=== PATIENT | male | born 1940 | race African-American/Black ===

== ENCOUNTER 2021-10-22 08:29 | Outpatient (CLI) | payer MEDICARE, OTHER, SELFPAY ==
[2021-10-22 13:54] LABS: Chloride* 97 mmol/L (96-114); Potassium* 3.8 mmol/L (3.6-5.1); Sodium* 132 mmol/L (135-149)
[2021-10-22 13:56] LABS: Bilirubin Total* 0.8 mg/dL (0.1-1.5); Carbon Dioxide* 30 mmol/L (20-32); Cholesterol* 155 mg/dL (90-199); Creatinine* 0.7 mg/dL (0.5-1.5)
[2021-10-22 13:57] LABS: Alanine Aminotransferase* 23 U/L (4-50); Alkaline Phosphatase* 92 U/L (40-150); Aspartate Amino Transferase* 31 U/L (12-35); Blood Urea Nitrogen* 18 mg/dL (7-30); Calcium* 9.2 mg/dL (8.4-10.6); Glucose* 115 mg/dL (60-115); Triglycerides* 77 mg/dL (40-149)
[2021-10-22 13:58] LABS: HDL Cholesterol* 51 mg/dL (>=40); LDL Cholesterol Calculated 89 mg/dL (<100)
[2021-10-22 14:48] LABS: Vitamin B12* > 1000 pg/mL (243-894)
== END 2021-10-22 08:30 | disposition home or self-care (01) ==
PROVIDERS: PCP Family Medicine; Visit Provider Family Medicine
DX: E13.9 Other specified diabetes mellitus without complications (principal); E78.5 Hyperlipidemia, unspecified; I10 Essential (primary) hypertension; E11.9 Type 2 diabetes mellitus without complications; G62.9 Polyneuropathy, unspecified; K21.9 Gastro-esophageal reflux disease without esophagitis; N40.0 Benign prostatic hyperplasia without lower urinary tract symptoms; Z13.21 Encounter for screening for nutritional disorder; R60.9 Edema, unspecified
CPT/HCPCS: 80053; 80061; 82607

== ENCOUNTER 2022-06-02 06:24 | Outpatient (CLI) | payer MEDICARE, OTHER, SELFPAY | END 2022-06-02 06:25 | disposition home or self-care (01) | LOC: AMB 06-11 11:32 | PROVIDERS: PCP Family Medicine; Visit Provider Family Medicine | DX: R42 Dizziness and giddiness (principal) | CPT/HCPCS: A0425; A0427 ==

== ENCOUNTER 2022-06-02 07:02 | Emergency (ER) | payer MEDICARE, OTHER, SELFPAY ==
[2022-06-02] VITALS (12 sets, daily range): BP systolic 129–145; BP diastolic 84–99; PULSE 87–101; RESP 18; TEMP 36.9; O2SAT 93–99; BMI 32.7
--- NOTE | 2022-06-02 07:20 | CRLHL7_ITS ---
For Patients: As a result of the Century Cures Act, medical imaging exams and procedure reports are released immediately into your electronic medical record. You may view this report before your referring provider. If you have questions, please contact your health care provider. INDICATION: Dizziness. TECHNIQUE: Head CT without contrast. COMPARISON: October 14, 2018. FINDINGS: CSF spaces: Within normal limits for age. Brain parenchyma and extra-axial spaces: There are nonspecific low attenuation white matter changes consistent with chronic microvascular disease. No sign of mass, hemorrhage, or midline shift. Skull base and calvarium: The visualized paranasal sinuses and mastoid air cells demonstrate no acute or significant findings. The visualized orbits are grossly unremarkable. No skull fractures. IMPRESSION: No acute or specific finding to explain dizziness. No changes from the prior exam. Please note that all CT scans at this facility use dose modulation, iterative reconstruction, and/or weight-based dosing when appropriate to reduce radiation dose to as low as reasonably achievable. Dictated by Wm Cuevas MD @ 06/02/2022 8:22:56 AM (Electronically Signed)
--- NOTE | 2022-06-02 07:20 | CRLHL7_ITS ---
For Patients: As a result of the Century Cures Act, medical imaging exams and procedure reports are released immediately into your electronic medical record. You may view this report before your referring provider. If you have questions, please contact your health care provider. INDICATION: Dizziness. TECHNIQUE: Chest 2 views. COMPARISON: 01/27/2017. FINDINGS: Cardiovascular and mediastinum: Heart size and vasculature are normal in caliber and appearance. Lungs and pleural spaces: Lungs are clear. No sign of infiltrate or mass. No sign of pleural effusion. No pneumothorax. Bones and soft tissues: No significant findings. IMPRESSION: No acute findings and no significant changes from the prior exam. Dictated by Wm Cuevas MD @ 06/02/2022 8:20:35 AM (Electronically Signed)
--- NOTE | 2022-06-02 07:23 | ED.GENADULT ---
HPI - General Adult General Chief complaint: Dizziness/Vertigo Stated complaint: Dizziness Time Seen by Provider: 06/02/22 07:05 Source: patient and EMS Mode of arrival: EMS History of Present Illness HPI narrative: 81-year-old male presents to the emergency department with dizziness via EMS. Patient reports that he awoke around 530 this morning and checked his blood sugar and reports that it was ?high?. Specifically was around 180 and it is typically around 120. Patient states that his dizziness felt like he was lightheaded and might fall off the chair but does not endorse symptoms of vertigo such as the room spinning or the floor moving. Admittedly, when I pursued this questioning through multiple different redirects, I got a variance of answers. He is a bit hard of hearing and there is a slight language and understanding barrier. He denies any chest pain, no palpitations. There was no head injury, no falls or trauma. He does not take any anticoagulants. He reports that there have been no recent adjustments in his medications but on specific questioning it does sound as though he is not taking all the medications that are listed in his record. He specifically does not take his antihypertensive per his report and I do not believe he is taking his bladder pill as he does not recall it when I asked specifically. Admittedly, I do not think he is a perfect historian regarding this. He denies any alcohol use, no other potential intoxication. No prior history of similar symptoms. No prior history of stroke, heart attack. No GI changes, no nausea or vomiting. No recent illness exposures. No fever. No neck pain or headache, no vision changes. No rash, dysuria or other systemic symptoms. He denies any other focal neurological changes. He did not try any interventions at home prior to calling EMS. Of note, he is on several medications which could contribute to morning dizziness including gabapentin, nortriptyline, clonazepam which he reports that he takes every night. I do not see clonazepam listed in his medication list, but there is lorazepam listed. Past medical history notable for type 2 diabetes, hypertension, peripheral neuropathy, anxiety disorder. Surgical history notable for prior knee surgeries, low bilateral lens surgery of his eyes. Socially no alcohol, no tobacco or smoking. No pertinent travel. Medications reviewed, incomplete per EMR records. Denies allergies. No family history of stroke per patient. Related Data Previous Rx's Medication Instructions Recorded aspirin 81 mg capsule 81 mg PO QDAY #100 caps 05/05/22 atorvastatin 20 mg tablet 20 mg PO QDAY #90 tabs 05/05/22 cholecalciferol (vitamin D3) 50 50 mcg PO QDAY #90 caps 05/05/22 mcg (2,000 unit) capsule clonidine HCl 0.2 mg tablet 0.2 mg PO BID #180 tabs 05/05/22 furosemide 40 mg tablet 40 mg PO .Daily as needed PRN 05/05/22 edema #90 tabs gabapentin 300 mg capsule 600 mg PO BID #360 caps 05/05/22 glipizide 5 mg tablet 5 mg PO QDAY PRN Elevated glucose 05/05/22 #90 tabs glipizide 5 mg-metformin 500 mg 2 tab PO QDAY #180 tabs 05/05/22 tablet hydrochlorothiazide 50 mg tablet 50 mg PO DAILY #90 tabs 05/05/22 lorazepam 0.5 mg tablet 0.5 mg PO BID PRN anxiety #60 tabs 05/05/22 meloxicam 7.5 mg tablet 7.5 mg PO DAILY #90 tabs 05/05/22 multivitamin (Daily Multi-Vitamin 1 tab PO QDAY #100 tabs 05/05/22 tablet) nortriptyline 25 mg capsule 25 mg PO .Bedtime #90 caps 05/05/22 olmesartan 40 mg tablet 40 mg PO DAILY #90 tabs 05/05/22 omega-3 fatty acids 1,000 mg 1,000 mg PO QDAY #90 caps 05/05/22 capsule omeprazole 20 mg capsule,delayed 20 mg PO DAILY #90 caps 05/05/22 release polyethylene glycol 3350 17 17 g PO DAILY #510 grams 05/05/22 gram/dose oral powder tamsulosin 0.4 mg capsule 0.4 mg PO BID #180 caps 05/05/22 Allergies Allergy/AdvReac Type Severity Reaction Status Date / Time losartan Allergy Mild vomiting Verified 06/02/22 07:07 and headaches PFSH PFSH Surgical History Status post arthroscopy of left knee (11/13/08) Status post cataract extraction (09/17/10) Status post repair of ventral hernia Status post shoulder joint replacement Social History Narrative: Hx tobacco use Smoking Status: Former smoker How often do you have a drink containing alcohol: never How often do you have six or more drinks on one occasion: Never AUDIT-C Alcohol total score: 0 Non-prescribed substance use: denies use Exam Const: Vital Signs, click to edit/add: Vital Signs - 24 hr 06/02/22 07:05 Temperature 98.5 F Pulse Rate [Right Pulse Oximeter] 91 Respiratory Rate 18 Blood Pressure [Le ft Upper Arm] 142/84 H Pulse Oximetry 99 Oxygen Delivery Me thod Room Air Documenting provider has reviewed patient's vital signs: yes Common normals: no apparent distress and alert General appearance: cooperative Orientation/consciousness: Yes awake Other: GCS 15 HENMT: Common normals: normocephalic, head/scalp atraumatic and TM's normal bilaterally Head and scalp: normocephalic and atraumatic Face and sinus: normal facial exam Tympanic membrane: TM's normal bilaterally Mouth: oral and palatal mucosa normal Throat: posterior oropharynx normal Eye: Common normals: PERRL and EOMs intact bilaterally Pupil: PERRL Neck & C-Spine: Common normals: full ROM, no lymphadenopathy and no meningeal signs Resp: Common normals: normal respiratory effort, no use of accessory muscles and clear to auscultation bilaterally Effort & inspection: able to speak in complete sentences Auscultation: clear to auscultation bilaterally Cardio: Common normals: regular rate, regular rhythm, S1 normal heart sound, S2 normal heart sound, no murmurs and peripheral pulses 2+ throughout Rate: regular rate Rhythm: regular rhythm Heart sounds: S1 normal and S2 normal Peripheral pulses: pulses 2+ throughout GI: Common normals: Normal to inspection, nondistended, normoactive bowel sounds present Other: Surgical scarring consistent with ventral hernia repair. No masses, no hepatosplenomegaly. Nontender. Back & Pelvis: Thoracic spine/upper back: normal to inspection Extremity: Common normals: normal to inspection, normal capillary refill, no joint enlargement and no pedal edema Other: Mild venous stasis changes in the lower legs only. No ulceration Neuro: Sensorium/orientation: awake and alert Meningeal signs: no meningeal signs Cranial nerves: CN normal except as noted Coordination/balance: yehnds-zl-wuwi test normal Motor exam: strength 5/5 throughout, no pronator drift, no tremor noted and no movement abnormalities noted Coordination: goalad-as-gwpw test normal Psych: Attitude: calm and engaged Activity/motor behavior: appropriate eye contact Insight: insight good Judgement: judgment good Other: Moderate historian. Skin: Common normals: no rashes or lesions noted General skin exam: no rashes or lesions noted Course Vital Signs Vital signs: Initial Vital Signs Temperature 98.5 F 06/02/22 07:05 Temperature Source Temporal Artery Scan 06/02/22 07:05 Pulse Rate 91 06/02/22 07:05 Respiratory Rate 18 06/02/22 07:05 Blood Pressure 142/84 H 06/02/22 07:05 Blood Pressure Mean 103 06/02/22 07:05 Blood Pressure Position Sitting 06/02/22 07:05 Pulse Oximetry 99 06/02/22 07:05 Oxygen Delivery Method 06/02/22 07:05 Vital Signs Temperature 98.5 F 06/02/22 07:05 Pulse Rate 91 06/02/22 07:05 Respiratory Rate 18 06/02/22 07:05 Blood Pressure 142/84 H 06/02/22 07:05 Pulse Oximetry 99 06/02/22 07:05 Oxygen Delivery Method 06/02/22 07:05 Temperature 98.5 F 06/02/22 07:05 Pulse Rate 91 06/02/22 07:05 Respiratory Rate 18 06/02/22 07:05 Blood Pressure 142/84 H 06/02/22 07:05 Pulse Oximetry 99 06/02/22 07:05 Oxygen Delivery Method 06/02/22 07:05 Medical Decision Making [facility] Narrative Medical decision making narrative: Wide differential diagnosis including medication side effects, worsening as he ages as my most suspected etiology. Cannot exclude viral illness, cardiac disease, stroke, dehydration, hyperglycemia, electrolyte abnormality, urinary infection. Vital signs are stable, no suspicion for sepsis. Recommend basic labs, EKG, head CT, COVID swab. Will not start any treatments in the interim. Would likely benefit from reduction of his nortriptyline, lorazepam, gabapentin if he continues to have repeated episodes. Awaiting findings. Heading over care to my in coming day shift partner, Dr. Clay Discharge Plan Discharge Prescriptions: No Action lorazepam 0.5 mg tablet 0.5 mg PO BID PRN (Reason: anxiety) Qty: 60 1RF aspirin 81 mg capsule 81 mg PO QDAY Qty: 100 3RF atorvastatin 20 mg tablet 20 mg PO QDAY Qty: 90 3RF cholecalciferol (vitamin D3) 50 mcg (2,000 unit) capsule 50 mcg PO QDAY Qty: 90 3RF clonidine HCl 0.2 mg tablet 0.2 mg PO BID Qty: 180 3RF furosemide 40 mg tablet 40 mg PO .Daily as needed PRN (Reason: edema) Qty: 90 3RF gabapentin 300 mg capsule 600 mg PO BID Qty: 360 3RF glipizide 5 mg tablet 5 mg PO QDAY PRN (Reason: Elevated glucose) Qty: 90 3RF Rx Instructions: Take this in addition to the normal glipizide/metformin combination glipizide-metformin 5-500 mg tablet 2 tab PO QDAY Qty: 180 3RF hydrochlorothiazide 50 mg tablet 50 mg PO DAILY Qty: 90 3RF meloxicam 7.5 mg tablet 7.5 mg PO DAILY Qty: 90 3RF multivitamin [Daily Multi-Vitamin] Tablet 1 tab PO QDAY Qty: 100 3RF nortriptyline 25 mg capsule 25 mg PO .Bedtime Qty: 90 3RF olmesartan 40 mg tablet 40 mg PO DAILY Qty: 90 3RF omega-3 fatty acids 1,000 mg capsule 1,000 mg PO QDAY Qty: 90 3RF omeprazole 20 mg capsule,delayed release(DR/EC) 20 mg PO DAILY Qty: 90 3RF polyethylene glycol 3350 17 gram/dose powder 17 g PO DAILY Qty: 510 0RF tamsulosin 0.4 mg capsule 0.4 mg PO BID Qty: 180 3RF Follow Up/Referrals: King Tatum MD [Primary Care Provider] -
[2022-06-02 08:11] LABS: Basophils Absolute Auto 0.03 K/uL (0.00-0.30); Basophils Percent Auto 0.3 % (0.0-3.0); Eosinophils Absolute Auto 0.08 K/uL (0.00-0.50); Eosinophils Percent Auto 0.8 % (0.0-7.0); Hematocrit 52.8 % (37.0-53.0); Hemoglobin* 17.7 gm/dL (13.5-17.5); Immature Granulocytes Abs Auto 0.01 K/uL (0.00-0.30); Immature Granulocytes Pct Auto 0.1 %; Mean Corpuscular HGB Conc 34 gm/dL (32-36); Mean Corpuscular Hemoglobin 30 pg (26-34); Mean Corpuscular Volume 90 fL (80-100); Monocytes Percent Auto 6.6 % (0.0-11.0); Neutrophils Percent Auto 74.2 % (42.0-72.0); Platelet Count* 229 K/uL (140-440); RDW Coefficient of Variation % 12.6 % (11.5-15.5); Red Blood Count 5.87 m/uL (4.30-5.90); White Blood Count* 9.83 K/uL (4.50-11.00)
[2022-06-02 08:18] LABS: Slide Review Reflex No
[2022-06-02 08:25] LABS: Chloride* 94 mmol/L (96-114); Potassium* 3.9 mmol/L (3.6-5.1); Sodium* 134 mmol/L (135-149)
[2022-06-02 08:28] LABS: Creatinine* 0.9 mg/dL (0.5-1.5); Est. Creatinine Clearance* 54.15; Estimated Glomerular Filt Rate 85 ml/min
[2022-06-02 08:29] LABS: Blood Urea Nitrogen* 28 mg/dL (7-30); Calcium* 11.1 mg/dL (8.4-10.6); Carbon Dioxide* 30 mmol/L (20-32); Glucose* 204 mg/dL (60-115)
[2022-06-02 08:32] LABS: C Reactive Protein* 0.5 mg/dL (0.5-1.0)
[2022-06-02 08:41] LABS: Troponin I* 0.03 ng/mL (0.01-0.04)
[2022-06-02 08:46] LABS: Procalcitonin* 0.07 ng/mL (<0.50)
[2022-06-02 08:53] LABS: NT Pro B Type NatriureticPept* 236 pg/mL
[2022-06-02 08:54] LABS: PCR FLU A Negative PCR FLU A (Negative); PCR FLU B Negative PCR FLU B (Negative); PCR RSV Negative PCR RSV (Negative)
[2022-06-02 08:55] LABS: SARS PCR* Negative SARS-CoV-2 (Negative)
[2022-06-02 08:59] LABS: Troponin, Point-of-Care* 0.03 ng/ml (0.01-0.04)
[2022-06-02 11:24] LABS: Appearance Urine Clear (Clear); Bilirubin Urine Negative (Negative); Blood Urine Negative (Negative); Color Urine Yellow (Yellow); Glucose Urine Negative (Negative); Ketones Urine Negative (Negative); Leukocyte Esterase Urine Negative (Negative); Nitrite Urine Negative (Negative); Protein Urine 2+ (Negative); Specific Gravity Urine >= 1.030 (1.000-1.030); Urobilinogen Urine 0.2 (0.2-1.0)
[2022-06-02 11:51] LABS: Amorphous Sediment Urine Few; Bacteria Urine Few; RBC Urine 0-2 (0-2); Squamous Epithelial Cell Urine Few (None-Few); WBC Urine 0-2 (0-5)
== END 2022-06-02 13:07 | disposition home or self-care (01) ==
PROVIDERS: Emergency Provider Family Medicine; PCP Family Medicine
DX: R42 Dizziness and giddiness (principal)
CPT/HCPCS: 36415; 70450; 71046; 80048; 81003; 81015; 83880; 84145; 84484; 85025; 86140; 87086; 87502; 87634; 87635; 93005; 99283; 99284; 99285

== ENCOUNTER 2022-06-09 10:31 | Outpatient (CLI) | payer MEDICARE, OTHER, SELFPAY ==
[2022-06-09 17:39] LABS: Chloride* 88 mmol/L (96-114); Potassium* 3.8 mmol/L (3.6-5.1); Sodium* 129 mmol/L (135-149)
[2022-06-09 17:42] LABS: Carbon Dioxide* 30 mmol/L (20-32); Creatinine* 1.5 mg/dL (0.5-1.5); Estimated Glomerular Filt Rate 46 ml/min
[2022-06-09 17:43] LABS: Blood Urea Nitrogen* 74 mg/dL (7-30); Calcium* 10.7 mg/dL (8.4-10.6); Glucose* 154 mg/dL (60-115)
== END 2022-06-09 10:32 | disposition home or self-care (01) ==
LOC: LONREF 10:33
PROVIDERS: PCP Family Medicine; Visit Provider Family Medicine
DX: I10 Essential (primary) hypertension (principal)
CPT/HCPCS: 80048

== ENCOUNTER 2023-01-21 09:53 | Outpatient (CLI) | payer MEDICARE, SELFPAY | END 2023-01-21 09:54 | disposition home or self-care (01) | PROVIDERS: PCP Family Medicine; Visit Provider Family Medicine | DX: I10 Essential (primary) hypertension (principal); E78.5 Hyperlipidemia, unspecified; R63.4 Abnormal weight loss; E13.9 Other specified diabetes mellitus without complications | CPT/HCPCS: 80048; 80061; 84443 ==

== ENCOUNTER 2023-07-03 14:30 | Outpatient (CLI) | payer MEDICARE, SELFPAY | END 2023-07-03 14:31 | disposition home or self-care (01) | PROVIDERS: PCP Family Medicine; Visit Provider Family Medicine | DX: I10 Essential (primary) hypertension (principal); E78.2 Mixed hyperlipidemia | CPT/HCPCS: 80048; 80061 ==

== ENCOUNTER 2023-08-09 15:36 | Outpatient (CLI) | payer MEDICARE, SELFPAY | END 2023-08-09 15:37 | disposition home or self-care (01) | LOC: AMB 08-17 15:39 | PROVIDERS: Visit Provider Family Medicine | DX: N50.89 Other specified disorders of the male genital organs (principal) | CPT/HCPCS: A0425; A0429 ==

== ENCOUNTER 2023-08-09 16:15 | Emergency (ER) | payer MEDICARE, SELFPAY ==
[2023-08-09 16:19] VITALS: BP 158/91; PULSE 74; RESP 16; TEMP 36.4; O2SAT 97; BMI 28.7
--- NOTE | 2023-08-09 16:54 | ED.GENADULT ---
HPI - General Adult General Chief complaint: Unspecified Complaint, Adult Stated complaint: Scrotal bleeding Time Seen by Provider: 08/09/23 16:19 History of Present Illness HPI narrative: This 82-year-old male comes in for evaluation of some brief bleeding that occurred on his scrotum on left side when drying himself off after taking a shower this afternoon. He does not report any discomfort. He thinks that he might have had some kind of cyst or boil there that drained a small amount of bloody fluid. He does not have any other symptoms. He does not report any pain. There has not been any fevers. Related Data Previous Rx's Medication Instructions Recorded aspirin 81 mg capsule 81 mg PO QDAY #100 caps 05/05/22 cholecalciferol (vitamin D3) 50 50 mcg PO QDAY #90 caps 06/25/22 mcg (2,000 unit) capsule glipizide 5 mg tablet 5 mg PO QDAY PRN Elevated glucose 06/25/22 #90 tabs lorazepam 0.5 mg tablet 0.5 mg PO BID PRN anxiety #60 tabs 06/25/22 multivitamin (Daily Multi-Vitamin 1 tab PO QDAY #100 tabs 06/25/22 tablet) omega-3 fatty acids 1,000 mg 1,000 mg PO QDAY #90 caps 06/25/22 capsule polyethylene glycol 3350 17 17 g PO DAILY #510 grams 06/25/22 gram/dose oral powder amoxicillin 500 mg capsule 2,000 mg (4 x 500 mg) PO ONCE #4 07/29/22 caps nortriptyline 25 mg capsule 25 mg PO .Bedtime #90 caps 03/02/23 clonazepam 0.5 mg tablet 0.5 mg PO QDAY #90 tabs 06/29/23 atorvastatin 20 mg tablet 20 mg PO QDAY #90 tabs 07/03/23 clonidine HCl 0.2 mg tablet 0.2 mg PO BID #180 tabs 07/03/23 furosemide 40 mg tablet 40 mg PO .Daily as needed PRN 07/03/23 edema #90 tabs gabapentin 300 mg capsule 600 mg (2 x 300 mg) PO BID #360 07/03/23 caps glipizide 5 mg-metformin 500 mg 2 tab PO QDAY #180 tabs 07/03/23 tablet hydrochlorothiazide 50 mg tablet 50 mg PO DAILY #90 tabs 07/03/23 meloxicam 7.5 mg tablet 7.5 mg PO DAILY #90 tabs 07/03/23 nortriptyline 50 mg capsule 50 mg PO QHS #90 caps 07/03/23 olmesartan 40 mg tablet 40 mg PO DAILY #90 tabs 07/03/23 omeprazole 20 mg capsule,delayed 20 mg PO DAILY #90 caps 07/03/23 release tamsulosin 0.4 mg capsule 0.4 mg PO BID #180 caps 07/03/23 Allergies Allergy/AdvReac Type Severity Reaction Status Date / Time losartan Allergy Mild vomiting Verified 07/03/23 13:54 and headaches Review of Systems Status of ROS: Reports: 10 or more systems reviewed and unremarkable except as noted in History and below Narrative: Constitutional: No fevers, no weight gain or loss. Eyes: No discharge. No vision changes. HENT: No congestion, no sore throat, no ear pain. Cardiovascular: No chest pain, no palpitations. Respiratory: No shortness of breath, no wheezes, no cough. Gastrointestinal: No abdominal pain, no vomiting, no diarrhea. Genitourinary: No dysuria, no hematuria. Small amount of drainage from the scrotum as described above. Musculoskeletal: Normal range of motion. Skin: No rashes, no pruritis. Neurological: No dizziness, weakness, sensory change, speech change. Endo/Heme/Allergies: No bruising or bleeding. No polydipsia. Pysch: no suicidality, no anxiety, no insomnia. All other systems reviewed and are negative. 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) ?Z98.890 - Other specified postprocedural states (ICD-10) Status post shoulder joint replacement ?Z96.619 - Presence of unspecified artificial shoulder joint (ICD-10) Status post repair of ventral hernia ?Z98.890 - Other specified postprocedural states (ICD-10) ?Z87.19 - Personal history of other diseases of the digestive system (ICD-10) Status post cataract extraction (09/17/10) ?Z98.49 - Cataract extraction status, unspecified eye (ICD-10) Status post arthroscopy of left knee (11/13/08) ?Z98.890 - Other specified postprocedural states (ICD-10) Social History Narrative: Hx tobacco use Smoking Status: Never smoker How often do you have a drink containing alcohol: never How often do you have six or more drinks on one occasion: Never AUDIT-C Alcohol total score: 0 Non-prescribed substance use: denies use Little interest or pleasure in doing things: not at all Feeling down, depressed, or hopeless: not at all Exam Narrative: Exam Narrative: Constitutional: Well-developed, well-nourished, no acute distress. HEENT: Normocephalic, atraumatic. Neck: Normal range of motion. Nontender. Supple. Heart: Intact distal pulses. Lungs: No chest discomfort. No wheezes, rhonchi, or rales. Abdomen: Nontender. Scrotum: Normal exam without any obvious lesion or tenderness. There is a small area on the left side that may have drained small amount of fluid. There is no erythema or swelling or palpable abscess or abnormality. Back: Normal range of motion. Extremities: Normal range of motion. No injury. Skin: Intact. No rash. Warm. No erythema or pallor. Neurologic: No altered sensation. No weakness. Alert and oriented. Psychiatric: No suicidality. No anxiety or depression. No insomnia. Nursing notes and vitals signs are reviewed. Const: Vital Signs, click to edit/add: Vital Signs - 24 hr 08/09/23 16:19 Temperature 97.6 F Pulse Rate [Pulse Oximeter] 74 Respiratory Rate 16 Blood Pressure [Ri ght Upper Arm] 158/91 H Pulse Oximetry 97 Oxygen Delivery Me thod Room Air Course Vital Signs Vital signs: Initial Vital Signs Temperature 97.6 F 08/09/23 16:19 Temperature Source Temporal Artery Scan 08/09/23 16:19 Pulse Rate 74 08/09/23 16:19 Respiratory Rate 16 08/09/23 16:19 Blood Pressure 158/91 H 08/09/23 16:19 Blood Pressure Mean 113 H 08/09/23 16:19 Blood Pressure Position Supine 08/09/23 16:19 Pulse Oximetry 97 08/09/23 16:19 Oxygen Delivery Method Room Air 08/09/23 16:19 Vital Signs Temperature 97.6 F 08/09/23 16:19 Pulse Rate 74 08/09/23 16:19 Respiratory Rate 16 08/09/23 16:19 Blood Pressure 158/91 H 08/09/23 16:19 Pulse Oximetry 97 08/09/23 16:19 Oxygen Delivery Method Room Air 08/09/23 16:19 Temperature 97.6 F 08/09/23 16:19 Pulse Rate 74 08/09/23 16:19 Respiratory Rate 16 08/09/23 16:19 Blood Pressure 158/91 H 08/09/23 16:19 Pulse Oximetry 97 08/09/23 16:19 Oxygen Delivery Method Room Air 08/09/23 16:19 Medical Decision Making MDM Narrative Medical decision making narrative: This patient comes in for evaluation of a small amount of fluid that drained from the left side of his scrotum when trying himself after a shower. He has no acute distress and has normal vital signs. His exam also is quite normal. There is 1 small area where there may have been some previous fluid that drained but there is no indication for any further workup. Discharge Plan Discharge Additional Instructions: Continue current plans. Follow up with MD or return if worsening. Prescriptions: No Action nortriptyline 50 mg capsule 50 mg PO QHS Qty: 90 3RF atorvastatin 20 mg tablet 20 mg PO QDAY Qty: 90 3RF clonidine HCl 0.2 mg tablet 0.2 mg PO BID Qty: 180 3RF furosemide 40 mg tablet 40 mg PO .Daily as needed PRN (Reason: edema) Qty: 90 3RF glipizide-metformin 5-500 mg tablet 2 tab PO QDAY Qty: 180 3RF hydrochlorothiazide 50 mg tablet 50 mg PO DAILY Qty: 90 3RF meloxicam 7.5 mg tablet 7.5 mg PO DAILY Qty: 90 3RF olmesartan 40 mg tablet 40 mg PO DAILY Qty: 90 3RF omeprazole 20 mg capsule,delayed release(DR/EC) 20 mg PO DAILY Qty: 90 3RF tamsulosin 0.4 mg capsule 0.4 mg PO BID Qty: 180 3RF gabapentin 300 mg capsule 600 mg PO BID Qty: 360 3RF aspirin 81 mg capsule 81 mg PO QDAY Qty: 100 3RF cholecalciferol (vitamin D3) 50 mcg (2,000 unit) capsule 50 mcg PO QDAY Qty: 90 3RF glipizide 5 mg tablet 5 mg PO QDAY PRN (Reason: Elevated glucose) Qty: 90 3RF Rx Instructions: Take this in addition to the normal glipizide/metformin combination lorazepam 0.5 mg tablet 0.5 mg PO BID PRN (Reason: anxiety) Qty: 60 1RF multivitamin [Daily Multi-Vitamin] Tablet 1 tab PO QDAY Qty: 100 3RF omega-3 fatty acids 1,000 mg capsule 1,000 mg PO QDAY Qty: 90 3RF polyethylene glycol 3350 17 gram/dose powder 17 g PO DAILY Qty: 510 5RF amoxicillin 500 mg capsule 2,000 mg PO ONCE Qty: 4 3RF Rx Instructions: Take all 4 capsules, 1 hour prior to dental appointment nortriptyline 25 mg capsule 25 mg PO .Bedtime Qty: 90 3RF clonazepam 0.5 mg tablet 0.5 mg PO QDAY Qty: 90 1RF Follow Up/Referrals: King Tatum MD [Primary Care Provider] - Stand Alone Forms: [facility] Info Instructions
== END 2023-08-09 17:03 | disposition home or self-care (01) ==
PROVIDERS: Emergency Provider Emergency Medicine Emergency Medical Services
DX: N44.2 Benign cyst of testis (principal)
CPT/HCPCS: 99283; 99284

== ENCOUNTER 2024-09-28 15:19 | Emergency (ER) | payer MEDICARE, SELFPAY ==
[2024-09-28 15:22] VITALS: BP 135/77; PULSE 98; RESP 18; TEMP 38; O2SAT 93
--- OUTSIDE RECORDS SUMMARY | 2024-09-28 15:22 | XMS_ITS | Encounter Summary ---
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 Galindo office that Dr. Anthony does not see patients with just headaches with no visual or eye issues, advised them to call patient with follow up options. LM with patient, cancel appt with Dr. Anthony, Patient should see Neurologist that specializes in headaches. Electronically signed by:Wayne Hughes Aug 04 2012 2:22PM STAFF CONSULTANT documented in this encounter Plan of Treatment Not on file documented as of this encounter Visit Diagnoses Not on filedocumented in this encounter Care Teams Chuck Boner Relationship Specialty Start Date End Date James Tatum MD PCP - General Family Practice 04/01/12 documented as of this encounter
--- OUTSIDE RECORDS SUMMARY | 2024-09-28 15:22 | XMS_ITS | Encounter Summary ---
Author Organization [facility] Address [address] [place] [id number] Care Team Providers Care Rn New Graduate Name Role Phone None, Bfp Primary Care Provider James Grant MD Primary Care Provider [phone] Reason for Visit * Reason Comments Refill Request #100 LAST FILLED - PER [facility] Encounter Details Date Type Department Care Team (Late st Contact Info) Description 08/30/1998 Refill [facility] [address] [place] [id number] Ricardo Samuel MD XXXX RESIGNED/INACTIVE XXXX Refill Request (#100 LAST FILLED 05-18-98 PER MCM) Social History Tobacco Use Types Packs/Day Years Used Date Smoking Tobacco: Never Assessed Sex and Gender Information Value Date Recorded Sex Assigned at Not on file 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 Contact: [facility] [phone] >> DEANGELO MELO 08/30/1998 01:50 pm documented in this encounter Plan of Treatment Not on file documented as of this encounter Visit Diagnoses Not on filedocumented in this encounter Care Teams Rn New Graduate Relationship Specialty Start Date End Date None, Bfp PCP - General 05/03/99 03/31/12 James Tatum MD PCP - General Family Practice 04/01/12 documented as of this encounter
--- OUTSIDE RECORDS SUMMARY | 2024-09-28 15:22 | XMS_ITS | Clinical Summary ---
Author Organization [facility] Address [address] [place] [id number] Care Team Providers Care Delivery Specialist Name Role Phone James Tatum MD Primary Care Provider [phone] Allergies No known active allergies Medications OMEPRAZOLE PO Take 20 mg by mouth every morning. Active METFORMIN HCL PO Take 500 mg by mouth 2 times daily (with meals). Active CLONIDINE HCL PO Take 0.2 mg by mouth 2 times daily. Active HYDROCHLOROTHIAZ ETTA PO Take 50 mg by mouth daily. Active TAMSULOSIN HCL PO Take 0.4 mg by mouth 2 times daily. Active Atorvastatin Calcium (LIPITOR PO) Take 20 mg by mouth At Bedtime. Active GABAPENTIN PO Take 300 mg by mouth At Bedtime. Active polyethylene glycol (MIRALAX/GLYCOLA X) powder Take 17 g by mouth daily as needed. Active ASPIRIN PO Take 81 mg by mouth daily. Active Cholecalciferol (VITAMIN D3 PO) Take 2,000 Units by mouth daily. Active Turkey-3 Fatty Acids (OMEGA-3 FISH OIL PO) Take 1,400 mg by mouth daily. Active multivitamin, therapeutic with minerals (MULTI-VITAMIN) TABS Take 1 tablet by mouth daily. Active chlorproPAMIDE (DIABINESE) 250 MG TABS Take 250 mg by mouth daily. Active olmesartan (BENICAR) 40 MG tablet Take 40 mg by mouth daily. Active Active Problems Problem Noted Date Diagnosed Date Chest pain 05/25/2012 Overview (12/22/2012): Problem list name updated by automated process. Provider to review and confirm [employer] Update utility Social History Tobacco Use Types Packs/Day Years Used Date Smoking Tobacco: Never Smokeless Tobacco: Never Alcohol Use Standard Drinks/Week Comments No 0 (1 standard drink = 0.6 oz pur e alcohol) Adolescent Education Answer Date Record ed Getting School Help Needed Not on file 01/24 Sex and Gender Information Value Date Recorded Sex Assigned at Not on file Legal Sex Male 2:58 AM [employer] Gender Identity Not on file Sexual Orientation Not on file Last Filed Vital Signs Vital Sign Reading Time Taken Comments Blood Pressure 139/103 09/17/2017 2:00 PM CDT Pulse 66 05/26/2012 11:20 AM [employer] Temperature 36.2 C (97.1 F) 09/17/2017 12:19 PM CDT Respiratory Rate 16 09/17/2017 12:45 PM CDT Oxygen Saturation 98% 09/17/2017 1:54 PM CDT Inhaled Oxygen Concentration - - Weight 90.9 kg (200 lb 6.4 oz) 05/25/2012 5:24 P M [employer] Height 175.3 cm (5' 9) 05/25/2012 5:24 PM [employer] Body Mass Index 29.59 05/25/2012 5:24 PM [employer] Plan of Treatment Not on file [place] [address] Advance Directives For more information, please contact: [phone] * Full Code (Latest Code Status on File) Date Activated Date Inactivated Comments 05/25/2012 5:17 PM 05/26/2012 5:59 PM Care Teams Delivery Specialist Relationship Specialty Start Date End Date James Tatum MD PCP - General Family Practice 04/01/12
--- NOTE | 2024-09-28 16:18 | CRLHL7_ITS ---
For Patients: As a result of the Cures Act, medical imaging exams and procedure reports are released immediately into your electronic medical record. You may view this report before your referring provider. If you have questions, please contact your health care provider. Indication: fall Technique: Three views of the right ankle. Comparison: None. Findings: Moderate soft tissue swelling surrounding the ankle. No acute displaced fracture or malalignment. Impression: No acute displaced fracture or malalignment. Dictated by Mathew Olivares MD @ 09/28/2024 5:21:39 PM (Electronically Signed)
--- NOTE | 2024-09-28 16:18 | ED.FALL ---
HPI - Fall General Chief Complaint: Fall/Minor Trauma Stated Complaint: Confusion, fall Time Seen by Provider: 09/28/24 15:31 History of Present Illness HPI Narrative: This 83-year-old male comes in with an injury to his right ankle. He states that he slipped on his deck and fell into a place were he was unable to get up. He has thinks that he was down for about an hour. He did not hit his head or have loss of consciousness. He does not report any other injury. Related Data Previous Rx's ?Medication ?Instructions ?Recorded aspirin 81 mg capsule 81 mg PO QDAY #100 caps 05/05/22 cholecalciferol (vitamin D3) 50 50 mcg PO QDAY #90 caps 06/25/22 mcg (2,000 unit) capsule glipizide 5 mg tablet 5 mg PO QDAY PRN Elevated glucose 06/25/22 #90 tabs lorazepam 0.5 mg tablet 0.5 mg PO BID PRN anxiety #60 tabs 06/25/22 multivitamin (Daily Multi-Vitamin 1 tab PO QDAY #100 tabs 06/25/22 tablet) omega-3 fatty acids 1,000 mg 1,000 mg PO QDAY #90 caps 06/25/22 capsule polyethylene glycol 3350 17 17 g PO DAILY #510 grams 06/25/22 gram/dose oral powder amoxicillin 500 mg capsule 2,000 mg (4 x 500 mg) PO ONCE #4 07/29/22 caps nortriptyline 25 mg capsule 25 mg PO .Bedtime #90 caps 03/02/23 atorvastatin 20 mg tablet 20 mg PO QDAY #90 tabs 07/03/23 clonidine HCl 0.2 mg tablet 0.2 mg PO BID #180 tabs 07/03/23 furosemide 40 mg tablet 40 mg PO .Daily as needed PRN 07/03/23 edema #90 tabs gabapentin 300 mg capsule 600 mg (2 x 300 mg) PO BID #360 07/03/23 caps glipizide 5 mg-metformin 500 mg 2 tab PO QDAY #180 tabs 07/03/23 tablet hydrochlorothiazide 50 mg tablet 50 mg PO DAILY #90 tabs 07/03/23 meloxicam 7.5 mg tablet 7.5 mg PO DAILY #90 tabs 07/03/23 nortriptyline 50 mg capsule 50 mg PO QHS #90 caps 07/03/23 olmesartan 40 mg tablet 40 mg PO DAILY #90 tabs 07/03/23 omeprazole 20 mg capsule,delayed 20 mg PO DAILY #90 caps 07/03/23 release tamsulosin 0.4 mg capsule 0.4 mg PO BID #180 caps 07/03/23 clonazepam 0.5 mg tablet 0.5 mg PO QDAY #90 tabs 09/11/23 Allergies Allergy/AdvReac Type Severity Reaction Status Date / Time losartan Allergy Mild vomiting Verified 09/28/24 15:26 and headaches Review of Systems Status of ROS: Reports: 10 or more systems reviewed and unremarkable except as noted in History and below Narrative: Constitutional: No fevers, no weight gain or loss. Eyes: No discharge. No vision changes. HENT: No congestion, no sore throat, no ear pain. Cardiovascular: No chest pain, no palpitations. Respiratory: No shortness of breath, no wheezes, no cough. Gastrointestinal: No abdominal pain, no vomiting, no diarrhea. Genitourinary: No dysuria, no hematuria. Musculoskeletal: Right ankle pain. Skin: No rashes, no pruritis. Neurological: No dizziness, weakness, sensory change, speech change. Endo/Heme/Allergies: No bruising or bleeding. No polydipsia. Pysch: no suicidality, no anxiety, no insomnia. All other systems reviewed and are negative. 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) ?Z98.890 - Other specified postprocedural states (ICD-10) Status post shoulder joint replacement ?Z96.619 - Presence of unspecified artificial shoulder joint (ICD-10) Status post repair of ventral hernia ?Z98.890 - Other specified postprocedural states (ICD-10) ?Z87.19 - Personal history of other diseases of the digestive system (ICD-10) Status post cataract extraction (09/17/10) ?Z98.49 - Cataract extraction status, unspecified eye (ICD-10) Status post arthroscopy of left knee (11/13/08) ?Z98.890 - Other specified postprocedural states (ICD-10) Social History Narrative: Hx tobacco use Smoking Status: Never smoker Do you use any of these nicotine containing products: None Second hand tobacco smoke exposure: No How often do you have a drink containing alcohol: never How often do you have six or more drinks on one occasion: Never AUDIT-C Alcohol total score: 0 Non-prescribed substance use: denies use service: No Exam Narrative: Exam Narrative: Constitutional: Well-developed, well-nourished, no acute distress. HEENT: Normocephalic, atraumatic. Neck: Normal range of motion. Nontender. Supple. Heart: Intact distal pulses. Lungs: No chest discomfort. No wheezes, rhonchi, or rales. Abdomen: Nontender. Back: Normal range of motion. Extremities: Diffuse pain in the right ankle. No obvious sign of deformity. Skin: Intact. No rash. Warm. No erythema or pallor. Neurologic: No altered sensation. No weakness. Alert and oriented. Psychiatric: No suicidality. No anxiety or depression. No insomnia. Nursing notes and vitals signs are reviewed. Const: Vital Signs, click to edit/add: Vital Signs - 24 hr 09/28/24 15:22 09/28/24 17:29 Temperature 100.4 F H 98.0 F Pulse Rate [Right Pulse Oximeter] 98 89 Respiratory Rate 18 18 Blood Pressure [Ri ght Upper Arm] 135/77 128/98 H Pulse Oximetry 93 96 Oxygen Delivery Me thod Room Air Room Air Course Vital Signs Vital signs: Initial Vital Signs Temperature 100.4 F H 09/28/24 15:22 Temperature Source Temporal Artery Scan 09/28/24 15:22 Pulse Rate 98 09/28/24 15:22 Pulse Rhythm Regular 09/28/24 15:22 Pulse Strength 3+ Normal 09/28/24 15:22 Respiratory Rate 18 09/28/24 15:22 Blood Pressure 135/77 09/28/24 15:22 Blood Pressure Mean 96 09/28/24 15:22 Blood Pressure Position Sitting 09/28/24 15:22 Pulse Oximetry 93 09/28/24 15:22 Oxygen Delivery Method Room Air 09/28/24 15:22 Vital Signs Temperature 100.4 F H 09/28/24 15:22 Pulse Rate 98 09/28/24 15:22 Respiratory Rate 18 09/28/24 15:22 Blood Pressure 135/77 06/11/25 15:22 Pulse Oximetry 93 09/28/24 15:22 Oxygen Delivery Method Room Air 09/28/24 15:22 Temperature 98.0 F 09/28/24 17:29 Pulse Rate 89 09/28/24 17:29 Respiratory Rate 18 09/28/24 17:29 Blood Pressure 128/98 H 09/28/24 17:29 Pulse Oximetry 96 09/28/24 17:29 Oxygen Delivery Method Room Air 09/28/24 17:29 MDM - Fall MDM Narrative Medical decision making narrative: This 83-year-old male came in for evaluation of injury to his right ankle from a fall that occurred prior to arrival. He was brought in by ambulance and had difficulty getting up because he fell into a place where he could not maneuver himself to get up. X-ray images are obtained of the right ankle and show no sign of fracture dislocation. The patient was not complaining of any other symptoms. He was able to successfully ambulate with the assistance of a walker which she normally uses when walking at home. He states that he has some pain medicines that he can use at home if needed. He is okay to be discharged home. Imaging Data XR R Ankle: Radiologist's impression: No acute displaced fracture or malalignment. Discharge Plan Discharge Clinical Impression: Ankle sprain Patient Disposition: Home, Self-Care Condition: Stable Additional Instructions: Use a walker for assistance in ambulating. Use [id number] medicines as needed and directed and increase activity as tolerated. Follow up with MD return if worsening. Prescriptions: No Action nortriptyline 50 mg capsule 50 mg PO QHS Qty: 90 3RF atorvastatin 20 mg tablet 20 mg PO QDAY Qty: 90 3RF clonidine HCl 0.2 mg tablet 0.2 mg PO BID Qty: 180 3RF furosemide 40 mg tablet 40 mg PO .Daily as needed PRN (Reason: edema) Qty: 90 3RF glipizide-metformin 5-500 mg tablet 2 tab PO QDAY Qty: 180 3RF hydrochlorothiazide 50 mg tablet 50 mg PO DAILY Qty: 90 3RF meloxicam 7.5 mg tablet 7.5 mg PO DAILY Qty: 90 3RF olmesartan 40 mg tablet 40 mg PO DAILY Qty: 90 3RF omeprazole 20 mg capsule,delayed release(DR/EC) 20 mg PO DAILY Qty: 90 3RF tamsulosin 0.4 mg capsule 0.4 mg PO BID Qty: 180 3RF gabapentin 300 mg capsule 600 mg PO BID Qty: 360 3RF aspirin 81 mg capsule 81 mg PO QDAY Qty: 100 3RF cholecalciferol (vitamin D3) 50 mcg (2,000 unit) capsule 50 mcg PO QDAY Qty: 90 3RF glipizide 5 mg tablet 5 mg PO QDAY PRN (Reason: Elevated glucose) Qty: 90 3RF Rx Instructions: Take this in addition to the normal glipizide/metformin combination lorazepam 0.5 mg tablet 0.5 mg PO BID PRN (Reason: anxiety) Qty: 60 1RF multivitamin [Daily Multi-Vitamin] Tablet 1 tab PO QDAY Qty: 100 3RF omega-3 fatty acids 1,000 mg capsule 1,000 mg PO QDAY Qty: 90 3RF polyethylene glycol 3350 17 gram/dose powder 17 g PO DAILY Qty: 510 5RF amoxicillin 500 mg capsule 2,000 mg PO ONCE Qty: 4 3RF Rx Instructions: Take all 4 capsules, 1 hour prior to dental appointment nortriptyline 25 mg capsule 25 mg PO .Bedtime Qty: 90 3RF clonazepam 0.5 mg tablet 0.5 mg PO QDAY Qty: 90 1RF Follow Up/Referrals: Provider,Not a Local [Non-Staff, Family Practice] Stand Alone Forms: MyHealth Info Instructions
[2024-09-28 17:29] VITALS: BP 128/98; PULSE 89; RESP 18; TEMP 36.7; O2SAT 96
== END 2024-09-28 18:05 | disposition home or self-care (01) ==
PROVIDERS: Emergency Provider Emergency Medicine Emergency Medical Services; PCP Family Medicine
DX: S93.401A Sprain of unspecified ligament of right ankle, initial encounter (principal); W18.30XA Fall on same level, unspecified, initial encounter
CPT/HCPCS: 73610; 99283; 99284

== ENCOUNTER 2024-09-28 17:18 | Outpatient (CLI) | payer MEDICARE, SELFPAY | END 2024-09-28 17:19 | disposition home or self-care (01) | LOC: AMB 09-30 09:24 | PROVIDERS: PCP Family Medicine; Visit Provider Family Medicine | DX: S19.9XXA Unspecified injury of neck, initial encounter (principal); W31.89XA Contact with other specified machinery, initial encounter; Y93.I9 Activity, other involving external motion; Y92.007 Garden or yard of unspecified non-institutional (private) residence as the place of occurrence of the external cause | CPT/HCPCS: A0425; A0429 ==

== ENCOUNTER 2025-03-06 10:48 | Outpatient (CLI) | payer MEDICARE, SELFPAY | END 2025-03-06 10:49 | disposition home or self-care (01) | LOC: AMB 03-09 15:54 | PROVIDERS: PCP Family Medicine; Visit Provider Family Medicine | DX: R10.9 Unspecified abdominal pain (principal) | CPT/HCPCS: A0425; A0427 ==

== ENCOUNTER 2025-03-06 11:21 | Observation (INO) | payer MEDICARE, SELFPAY ==
[2025-03-06] VITALS (21 sets, daily range): BP systolic 89–147; BP diastolic 66–95; PULSE 55–89; RESP 10–20; TEMP 36–36.7; O2SAT 94–99; BMI 27.8; BMI 28.1; BMI 28.2
--- NOTE | 2025-03-06 11:35 | ED_ITS ---
HPI - General Adult General Date Seen: 03/06/25 Chief complaint: Syncope/Fainted Stated complaint: Lightheaded Time Seen by Provider: 03/06/25 11:35 History of Present Illness HPI narrative: 84-year-old gentleman brought to the ER today by EMS because he was dizzy and had a fainting spell. Blood pressures were soft in the 80s-90s systolic range per EMS but were 110 systolic upon arrival here to the ER. Per report the patient does have some memory loss and is oriented to person and knows he is in a hospital but he thinks the year is 1998. He does have a past history per records of type 2 diabetes, peripheral neuropathy, hypertension, anxiety. Also history of headache, insomnia, trigeminal neuralgia, BPH, Our med list was last updated in 2022. According to that med list Aspirin 81 AOmelsartan 40 mg daily Clonidine 0.2 mg p.o. b.i.d. Furosemide 40 mg daily Hydrochlorothiazide 50 mg daily Atorvastatin 20 mg vitamin-D 50 mg Clonazepam 0.5 mg daily Glipizide 5 mg daily Combination glipizide/metformin 5 mg/500 mg 2 tabs p.o. daily Lorazepam 0.5 mg p.o. b.i.d. p.r.n. Meloxicam 7.5 mg p.o. daily Multivitamin Nortriptyline 75 mg p.o. at bedtime [facility] 3 Omeprazole MiraLax Tamsulosin Related Data Previous Rx's ?Medication ?Instructions ?Recorded aspirin 81 mg capsule 81 mg PO QDAY #100 caps 04/20 10/10 cholecalciferol (vitamin D3) 50 50 mcg PO QDAY #90 cap s 06/25/22 mcg (2,000 unit) capsule glipizide 5 mg tablet 5 mg PO QDAY PRN Elevated gl ucose 06/25/22 #90 tabs lorazepam 0.5 mg tablet 0.5 mg PO BID PRN anxiety #6 0 tabs 06/25/22 multivitamin (Daily Multi-Vitamin 1 tab PO QDAY #100 t abs 06/25/22 tablet) omega-3 fatty acids 1,000 mg 1,000 mg PO QDAY #90 caps 06/25/22 capsule polyethylene glycol 3350 17 17 g PO DAILY #510 grams 0 06/25/22 gram/dose oral powder amoxicillin 500 mg capsule 2,000 mg (4 x 500 mg) PO ON CE #4 07/29/22 caps nortriptyline 25 mg capsule 25 mg PO .Bedtime #90 caps 03/02/23 atorvastatin 20 mg tablet 20 mg PO QDAY #90 tabs 07/02 clonidine HCl 0.2 mg tablet 0.2 mg PO BID #180 tabs furosemide 40 mg tablet 40 mg PO .Daily as needed VT N 07/03/23 edema #90 tabs gabapentin 300 mg capsule 600 mg (2 x 300 mg) PO BID # 360 07/03/23 caps glipizide 5 mg-metformin 500 mg 2 tab PO QDAY #180 tab s 07/03/23 tablet hydrochlorothiazide 50 mg tablet 50 mg PO DAILY #90 ta bs 07/03/23 meloxicam 7.5 mg tablet 7.5 mg PO DAILY #90 tabs nortriptyline 50 mg capsule 50 mg PO QHS #90 caps 06/18 09/10 olmesartan 40 mg tablet 40 mg PO DAILY #90 tabs 06/18 09/10 omeprazole 20 mg capsule,delayed 20 mg PO DAILY #90 ca ps 07/03/23 release tamsulosin 0.4 mg capsule 0.4 mg PO BID #180 caps 06/18 09/10 clonazepam 0.5 mg tablet 0.5 mg PO QDAY #90 tabs 08/19 08/11 Allergies Allergy/AdvReac Type Severity Reaction Status Date / Time losartan Allergy Mild vomiting Verified 03/06/25 11:33 and headaches PFSH PFSH Surgical History 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) ?Z98.890 - Other specified postprocedural states (ICD-10) Status post shoulder joint replacement ?Z96.619 - Presence of unspecified artificial shoulder joint (ICD-10) Status post repair of ventral hernia ?Z98.890 - Other specified postprocedural states (ICD-10) ?Z87.19 - Personal history of other diseases of the digestive system (ICD-10) Status post cataract extraction (09/17/10) ?Z98.49 - Cataract extraction status, unspecified eye (ICD-10) Status post arthroscopy of left knee (11/13/08) ?Z98.890 - Other specified postprocedural states (ICD-10) Social History Narrative: Hx tobacco use Smoking Status: Never smoker Do you use any of these nicotine containing products: None Second hand tobacco smoke exposure: No How often do you have a drink containing alcohol: never How often do you have six or more drinks on one occasion: Never AUDIT-C Alcohol total score: 0 Non-prescribed substance use: denies use service: No Exam Const: Vital Signs, click to edit/add: Vital Signs - 24 hr 03/06/25 11:28 03/06/25 11:28 03/06/25 11:29 Temperature 96.8 F L Pulse Rate 58 L Pulse Rate [Pulse Oximeter] 56 L Respiratory Rate 18 15 Blood Pressure 126/70 Blood Pressure [Ri ght Upper Arm] 110/70 Blood Pressure [or thostatic lying] 110/70 Blood Pressure [or thostatic sitting] 98/68 Blood Pressure [or thostatic standing ] 89/69 L Pulse Oximetry 95 97 Oxygen Delivery Me thod Room Air 03/06/25 11:30 03/06/25 11:32 03/06/25 11:42 Temperature Pulse Rate 57 L 57 L Pulse Rate [Pulse Oximeter] Respiratory Rate 14 20 10 L Blood Pressure 110/70 98/68 Blood Pressure [Ri ght Upper Arm] Blood Pressure [or thostatic lying] Blood Pressure [or thostatic sitting] Blood Pressure [or thostatic standing ] Pulse Oximetry 97 96 Oxygen Delivery Me thod 03/06/25 11:44 03/06/25 11:45 03/06/25 11:50 Temperature Pulse Rate 62 Pulse Rate [Pulse Oximeter] Respiratory Rate 16 10 L 17 Blood Pressure 89/69 L 131/74 Blood Pressure [Ri ght Upper Arm] Blood Pressure [or thostatic lying] Blood Pressure [or thostatic sitting] Blood Pressure [or thostatic standing ] Pulse Oximetry Oxygen Delivery Me thod Room Air 03/06/25 12:00 03/06/25 13:21 03/06/25 13:30 Temperature Pulse Rate 55 L 65 62 Pulse Rate [Pulse Oximeter] Respiratory Rate 17 16 14 Blood Pressure Blood Pressure [Ri ght Upper Arm] Blood Pressure [or thostatic lying] Blood Pressure [or thostatic sitting] Blood Pressure [or thostatic standing ] Pulse Oximetry 97 96 98 Oxygen Delivery Me thod 03/06/25 13:31 03/06/25 13:32 03/06/25 13:45 Temperature Pulse Rate 63 61 65 Pulse Rate [Pulse Oximeter] Respiratory Rate 11 L 12 13 Blood Pressure 144/79 H 141/86 H Blood Pressure [Ri ght Upper Arm] Blood Pressure [or thostatic lying] Blood Pressure [or thostatic sitting] Blood Pressure [or thostatic standing ] Pulse Oximetry 98 97 97 Oxygen Delivery Me thod Room Air Course Course ED Course: 1153-because of the patient's borderline hypotension although he says he feels fine am concerned about his left abdominal tenderness. Differential would include colitis, infection, pyelonephritis, AAA, others. I have ordered sepsis order set 30 mL/kg fluid bolus, blood cultures, also type and screen. I have ordered empiric antibiotics. Second IV. EKG shows sinus bradycardia, which is similar to baseline. It is possible that he overdosed on his medications because it is just not clear when he has been taking and he is not able tell me. Reevaluation(s) Reevaluation #1: Recheck-has completed about 2 L of crystalloid. Blood pressure now 141/90. Patient says he is feeling fine and remains asymptomatic. Still very pleasant but not a reliable historian. I re-examined the patient's back and he does not have any midline tenderness over the T or lumbar spine this was suggest that the compression fracture noted on CT is probably not acute. Reevaluation #2: Recheck-we tried to get additional history from family I had a long conversation with his grandson. Recheck-at 1:57 p.m. patient now says that he is not safe at home and that he thinks his is trying to poison him. He is not able to describe any details about how she is poisoning him. Vital Signs Vital signs: Initial Vital Signs Temperature 96.8 F L 03/06/25 11:28 Temperature Source Temporal Artery Scan 03/06/25 11:28 Pulse Rate 56 L 03/06/25 11:28 Pulse Rhythm Regular 03/06/25 11:28 Respiratory Rate 18 03/06/25 11:28 Blood Pressure 110/70 03/06/25 11:28 Blood Pressure Mean 83 03/06/25 11:28 Blood Pressure Position Supine 03/06/25 11:28 Pulse Oximetry 95 03/06/25 11:28 Oxygen Delivery Method Room Air 03/06/25 11:28 Vital Signs Temperature 96.8 F L 03/06/25 11:28 Pulse Rate 56 L 03/06/25 11:28 Respiratory Rate 18 03/06/25 11:28 Blood Pressure 110/70 03/06/25 11:28 Pulse Oximetry 95 03/06/25 11:28 Oxygen Delivery Method Room Air 03/06/25 11:28 Temperature 96.8 F L 03/06/25 11:28 Pulse Rate 65 03/06/25 13:45 Respiratory Rate 13 03/06/25 13:45 Blood Pressure 141/86 H 03/06/25 13:32 Pulse Oximetry 97 03/06/25 13:45 Oxygen Delivery Method Room Air 03/06/25 13:32 Medications Administered Medications: Discontinued Medications Generic Name Dose Route Start Last Admin Trade Name Freq PRN Reason Stop Dose Admin Lactated Ringer's 1,000 mls @ 1,000 mls/hr 03/06/25 11:51 03/06/25 13:32 Lactated Ringers 1000 Ml IV 03/06/25 12:50 Infused .Q1H ONE Infusion Lactated Ringer's 500 mls @ 500 mls/hr 03/06/25 11:51 03/06/25 13:34 Lactated Ringers 500 Ml IV 03/06/25 12:50 500 mls/hr .Q1H ONE Administration Vancomycin/PEG/NADA/Lysine/Water 1.5 gm in 300 mls @ 200 mls/hr 03/06/25 11:52 03/06/25 13:25 Vancomycin 1.5 Gm/300 Ml IVPB 03/06/25 13:21 200 mls/hr ONCE ONE Administration Protocol Piperacillin Sod/Tazobactam 100 mls @ 200 mls/hr 03/06/25 12:30 03/06/25 13:25 Sod 3.375 gm/ Sodium Chloride IVPB 03/06/25 12:59 Infused ONCE ONE Infusion Medical Decision Making MDM Narrative Medical decision making narrative: 84-year-old gentleman brought to the ER today from his home by EMS after he had a syncopal event at home. 1. Trauma. Patient does describe that he got weak and fell (fainted) while walking to the bathroom at home. He does not have any outward signs of trauma to his head, neck, torso, or extremities. Head CT is obtained because the patient has painless confusion and unclear if he hit his head or not. Fortunately head CT is negative for any sign of intracranial hemorrhage or skull fracture. Likewise, although he does not have any obvious signs of the C-spine injury, with his baseline confusion cannot properly be assessed for C-spine injury. We did pain C-spine CT and it shows degenerative changes but no acute injuries. I do not see any evidence for pelvic fracture or other long bone injury. No obvious bruises or lacerations. CT scan of his chest, and his abdomen pelvis show no obvious traumatic internal injuries. There is an age-indeterminate L3 compression fracture. He is not tender in the back. I suspect this is a chronic injury, not acute. 2. Blood pressure. Patient was hypotensive per EMS. First blood pressure reading here in the ER was normotensive at 110 systolic. He is definitely orthostatic and blood pressure dropped to 86 systolic with standing up (although, surprisingly he is not symptomatic her feeling dizzy with this low blood pressure reading). Differential for his low blood pressure is broad. At this point do not see any sign of internal bleeding on CT imaging. He does have a thoracic and abdominal aortic aneurysm but no evidence for rupture. He is not having any pain to suggest that this is a dissection. Although the patient is not a completely reliable historian he denies any recent black or bloody stools. No clear evidence for any recent or active GI bleeding. Hemoglobin is 13.7. Consider possible infection or sepsis. I did order a 30 mL/kg fluid bolus and some antibiotics to cover broadly for sepsis when the patient arrived although he is not febrile and white count is normal. Ultimately it turns out not to have SIRS criteria. Blood cultures are pending. Urinalysis[]. 3. Cardiac. Patient does have are history of high blood pressure but it is very unclear which medications he is on. Med list that we have in our computer is not updated for a couple of years. Patient says he formally saw Dr. White, but now he has a new primary care provider at the [facility]. However, I do not see any recent visits with the [facility] clinic in the [facility] care link. EKG shows sinus bradycardia with first-degree AV block. No clear ischemia. Troponin is normal. And terminal proBNP is normal. Chest CT does not show pulmonary edema. 4. Neurologic, I was able to get hold the patient's grandson by phone. He lives with the patient. They have been suspecting that he is developing dementia for the past year or so but the patient still is in independent control of his medications. His family does not know his doctor's name or what meds he is on. While we were on the phone the patient's grandson went through the patient's medication boxes. He says that there are 3 different pox is all with different bottles of pills in them. Some of the pills are and weakly dispenser and some of the pills are in their prescription bottles. Meds that are in the boxes include; hydrocodone, Ciprodex drops, fish oil, vein knees, Mucinex, [id number] supplements, furosemide, hydrochlorothiazide, olmesartan, clonazepam, amlodipine, glipizide, atorvastatin, multivitamins, natural supplements, amoxicillin clavulanic acid (prescribed in 2023), hydro sign 9, omeprazole, glipizide/metformin. It looks like Dr. Leger will prescribe his medications in September. Patient will need further assessment for evolving dementia. There was no known report of any seizure activity. No clear postictal spell. Blood sugar normal. Sodium mildly low at 126. Unclear if this is acute or chronic. Discussed with our hospitalist, Dr. Barcenas. He agrees to admit the patient for observation and blood pressure monitoring overnight. Further assessment for dementia. Please see hospitalist notes for further details about admission status and further workup. Lab Data Labs: Lab Results 03/06/25 03/06/25 03/06/25 Range/Units 11:49 12:00 12:05 WBC (4.50-11.00) K/uL RBC (4.30-5.90) m/uL Hgb (13.5-17.5) gm/dL Hct (37.0-53.0) % MCV (80-100) fL MCH (26-34) pg MCHC (32-36) gm/dL RDW Coeff of Aye (11.5-15.5) % Plt Count (140-440) K/uL Neut % (Auto) (42.0-72.0) % Lymph % (Auto) (20-44) % Mellette % (Auto) (0.0-11.0) % Eos % (Auto) (0.0-7.0) % Baso % (Auto) (0.0-3.0) % Neut # (Auto) (1.7-7.0) K/uL Lymph # (Auto) (0.90-2.90) K/uL Mellette # (Auto) (0.00-0.90) K/UL Eos # (Auto) (0.00-0.50) K/uL Baso # (Auto) (0.00-0.30) K/uL Abs Immat Gran (auto) (0.00-0.30) K/uL Imm/Tot Granulo (auto) % INR (0.91-1.10) Sodium (135-149) mmol/L Potassium (3.6-5.1) mmol/L Chloride (96-114) mmol/L Carbon Dioxide (20-32) mmol/L Anion Gap (7-15) mEq/L BUN (7-30) mg/dL Creatinine (0.5-1.5) mg/dL Estimated Creat Clear Estimated GFR ml/min Glucose (60-115) mg/dL Lactate 1.1 (0.5-1.9) mmol/L Calcium (8.4-10.6) mg/dL Total Bilirubin (0.1-1.5) mg/dL AST (12-35) U/L ALT (4-50) U/L Alkaline Phosphatase (40-150) U/L Troponin I (0.01-0.04) ng/mL NT-Pro-B Natriuret Pep (See Note) pg/mL Total Protein (6.0-8.3) g/dL Albumin (3.3-5.0) g/dL Lipase (23-300) U/L SARS-CoV-2 (PCR) Negative SARS-CoV-2 (Negative) Influenza Type A (PCR) Negative PCR FLU A (Negative) Influenza Type B (PCR) Negative PCR FLU B (Negative) RSV (PCR) Negative PCR RSV (Negative) POC Creatinine 1.4 H (0.6-1.3) mg/dl 03/06/25 Range/Units 12:07 WBC 8.59 (4.50-11.00) K/uL RBC 4.44 (4.30-5.90) m/uL Hgb 13.7 (13.5-17.5) gm/dL Hct 40.9 (37.0-53.0) % MCV 92 (80-100) fL MCH 31 (26-34) pg MCHC 34 (32-36) gm/dL RDW Coeff of Aye 12.7 (11.5-15.5) % Plt Count 213 (140-440) K/uL Neut % (Auto) 72.9 H (42.0-72.0) % Lymph % (Auto) 16.3 L (20-44) % Mellette % (Auto) 5.7 (0.0-11.0) % Eos % (Auto) 4.3 (0.0-7.0) % Baso % (Auto) 0.6 (0.0-3.0) % Neut # (Auto) 6.30 (1.7-7.0) K/uL Lymph # (Auto) 1.40 (0.90-2.90) K/uL Mellette # (Auto) 0.50 (0.00-0.90) K/UL Eos # (Auto) 0.37 (0.00-0.50) K/uL Baso # (Auto) 0.05 (0.00-0.30) K/uL Abs Immat Gran (auto) 0.02 (0.00-0.30) K/uL Imm/Tot Granulo (auto) 0.2 % INR 1.00 (0.91-1.10) Sodium 126 L (135-149) mmol/L Potassium 4.0 (3.6-5.1) mmol/L Chloride 91 L (96-114) mmol/L Carbon Dioxide 27 (20-32) mmol/L Anion Gap 8 (7-15) mEq/L BUN 27 (7-30) mg/dL Creatinine 1.2 (0.5-1.5) mg/dL Estimated Creat Clear 42.75 Estimated GFR 59 ml/min Glucose 119 H (60-115) mg/dL Lactate (0.5-1.9) mmol/L Calcium 10.3 (8.4-10.6) mg/dL Total Bilirubin 0.8 (0.1-1.5) mg/dL AST 30 (12-35) U/L ALT 21 (4-50) U/L Alkaline Phosphatase 97 (40-150) U/L Troponin I 0.02 (0.01-0.04) ng/mL NT-Pro-B Natriuret Pep 281 (See Note) pg/mL Total Protein 7.8 (6.0-8.3) g/dL Albumin 4.1 (3.3-5.0) g/dL Lipase 163 (23-300) U/L SARS-CoV-2 (PCR) (Negative) Influenza Type A (PCR) (Negative) Influenza Type B (PCR) (Negative) RSV (PCR) (Negative) POC Creatinine (0.6-1.3) mg/dl Imaging Data CT scan - head: Attestation: I have reviewed the pertinent imaging results. Radiologist's impression: IMPRESSION: 1. No acute intracranial abnormality. 2. No significant changes compared to the prior exam. CT C spine: Attestation: I have reviewed the pertinent imaging results. Radiologist's impression: Impression: 1. No convincing radiographic evidence of acute osseous injury. 2. Scattered degenerative changes of the cervical spine. CT scan - chest: Attestation: I have reviewed the pertinent imaging results. Radiologist's impression: IMPRESSION: 1. Mild respiratory motion. No pulmonary emboli seen or suspected. 2. Dilated main pulmonary artery may reflect pulmonary hypertension. 3. All 4 cardiac chambers are dilated. No pulmonary edema. 4. Thoracic aortic aneurysm. The ascending aorta measures 4.6 centimeters. The descending aorta measures up to 3.9 centimeters. 5. There are a couple of pulmonary nodules measuring up to 5 millimeters. Per the Fleischner Society criteria consider a follow-up chest CT in 12 months for patients who have a high risk of primary pulmonary malignancy. CT scan - abdomen: Attestation: I have reviewed the pertinent imaging results. Radiologist's impression: IMPRESSION: 1. Age-indeterminate L3 compression fracture. No comparisons available. No findings to indicate this is acute. There is about 10% loss of height. 2. Thoracic and abdominal aortic aneurysm measuring up to 3.9 cm in the lower thorax and infrarenal segments. ECG Data Attestation: I personally reviewed and interpreted this ECG as follows: Interpretation: Sinus bradycardia with first-degree AV block Rate 56 VT interval 250 Left axis QRS deviation Q-waves in leads AVR, aVL. LVH . No ST segment elevation or depression. There is a strain pattern of the T- wave in leads V to, V3. No clear ST segment elevation or depression. No change compared to 06/02/2022 QT 420, QTC 405 Discharge Plan Discharge Clinical Impression: Orthostatic hypotension, Confusion, Acute hyponatremia Patient Disposition: Admitted As Observation
--- NOTE | 2025-03-06 11:49 | CRLHL7_ITS ---
For Patients: As a result of the Century Cures Act, medical imaging exams and procedure reports are released immediately into your electronic medical record. You may view this report before your referring provider. If you have questions, please contact your health care provider. Indication: fall, syncope, possible head injury, hypotension, L abdominal tenderness Technique: Noncontrast axial CT of the cervical spine with coronal and sagittal reformats are provided. Comparison: No prior studies available for comparison at this institution. Findings: Straightening and slight reversal of normal cervical lordosis. Ankylosis of the C3-4 vertebral bodies. Advanced degenerative changes at the anterior atlantoaxial articulation. No acute fracture. No aggressive osseous lesions. No prevertebral or paraspinal edema. Grade 1 anterolisthesis at C3-4, C4-5 and C7-T1. The mastoid air cells are clear. C1-2: No spinal canal stenosis. C2-3: [id number]-ljccloqu left facet joint arthrosis. No significant spinal canal stenosis. Mild widening of the left facet joint. C3-4: Ankylosis. Advanced left facet arthrosis. Mild to moderate left neural foraminal narrowing. No significant spinal canal stenosis or right neural foraminal narrowing. C4-5: Advanced left and mild right facet joint arthrosis. Mild left neural foraminal narrowing. No right neural foraminal narrowing. No significant spinal canal stenosis. C5-6: Posterior endplate osteophytic ridging. Uncovertebral joint hypertrophy. Bilateral facet arthrosis. Mild neural foramen narrowing bilaterally. No significant spinal canal stenosis. C6-7: Posterior endplate osteophytic spurring and uncovertebral joint hypertrophy. No significant spinal canal stenosis or neural foraminal narrowing. C7-T1: Grade 1 anterolisthesis. Moderate facet joint arthrosis. No significant spinal canal stenosis or neural foraminal narrowing. Impression: 1. No convincing radiographic evidence of acute osseous injury. 2. Scattered degenerative changes of the cervical spine. Please note that all CT scans at this facility use dose modulation, iterative reconstruction, and/or weight-based dosing when appropriate to reduce radiation dose to as low as reasonably achievable. Dictated by Yonathan Otero MD @ 03/06/2025 12:55:33 PM (Electronically Signed)
--- NOTE | 2025-03-06 11:49 | CRLHL7_ITS ---
For Patients: As a result of the 21st Century Cures Act, medical imaging exams and procedure reports are released immediately into your electronic medical record. You may view this report before your referring provider. If you have questions, please contact your health care provider. INDICATION: Fall, syncope, hypotension, abdominal tenderness. COMPARISON: Same-day CT angiogram chest TECHNIQUE: CT of the abdomen and pelvis with intravenous contrast. Multiplanar axial, coronal, and sagittal reformats were reconstructed. Contrast: 95 mL Isovue 370. FINDINGS: Lung bases: Please see same-day diagnostic chest CT. Liver: There is a 1.1 centimeter cyst in hepatic segment III. There are not any worrisome liver lesions. Gallbladder and bile ducts: Normal gallbladder. No bile duct dilation. Pancreas: Normal. Spleen: Normal. Adrenal glands: Normal. Kidneys: Normal overall renal size and position. There are numerous bilateral renal cysts. The largest cyst is in the right upper pole measures 7.9 x 5.5 cm. There are a few smaller left renal cysts that measure up to 1.7 cm. No solid mass. There is hyperdense contrast excreted into the collecting system, presumably from the CT angiogram chest performed earlier today. No large urinary tract calculi are seen. No urinary tract dilation. Urinary bladder: Small amount of excreted hyperdense contrast in the bladder. Pelvis: No cyst or mass. Vessels: Moderate to heavy atherosclerosis. Lower thoracic aorta measures 3.9 centimeters in diameter. Upper abdominal aorta measures 3.1 centimeters in diameter. There is an infrarenal abdominal aortic aneurysm that measures 3.9 x 3.9 cm on series 502, image 85. This extends all the way through the bifurcation. No periaortic hematoma or stranding. There is a focal outpouching along the medial margin that measures about 1.5 centimeters. 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 Measures up to 8 millimeters. Bowel: No dilated or inflamed bowel. Appendix not seen. Moderate diffuse colonic diverticulosis without diverticulitis. Large stool burden. Lymph nodes: No adenopathy. Peritoneum: No ascites. Abdominal wall: Prior umbilical hernia repair. No recurrent hernia. No inguinal hernia. Bones: L3 superior endplate compression fracture with about 10 percent loss of height is age indeterminate. No discrete fracture line seen. Old healed right anterolateral 7th and 8th rib fractures. No focal worrisome bone lesions. IMPRESSION: 1. Age-indeterminate L3 compression fracture. No comparisons available. No findings to indicate this is acute. There is about 10% loss of height. 2. Thoracic and abdominal aortic aneurysm measuring up to 3.9 cm in the lower thorax and infrarenal segments. Please note that all CT scans at this facility use dose modulation, iterative reconstruction, and/or weight-based dosing when appropriate to reduce radiation dose to as low as reasonably achievable. Dictated by Ally Betancourt MD @ 03/06/2025 1:09:53 PM (Electronically Signed)
--- NOTE | 2025-03-06 11:50 | CRLHL7_ITS ---
For Patients: As a result of the Century Cures Act, medical imaging exams and procedure reports are released immediately into your electronic medical record. You may view this report before your referring provider. If you have questions, please contact your health care provider. INDICATION: Fall, syncope, hypotension. COMPARISON: Same day CT abdomen pelvis TECHNIQUE: CT angiogram chest with contrast, pulmonary embolism protocol. Multiplanar axial, coronal, and sagittal reformats are included. MIP images to improve detection of pulmonary emboli are included. Intravenous contrast: 95 mL Isovue 370. FINDINGS: PE: Well-timed contrast bolus. There is some motion artifact in the lung bases. No pulmonary emboli seen. Mildly dilated 3.5 cm main pulmonary artery. Moderately dilated right heart chambers. No reflux of contrast below the diaphragm. Airway: Respiratory motion. No central tracheobronchial lesion. Lungs: Respiratory motion mostly in the bases. There is a 6 millimeter subpleural nodule in the right lower lobe on series 606, image 163. There is a 4 millimeter subpleural nodule in the left lower lobe on series 606, image 163. No consolidations. Pleura: No pleural effusion. No pneumothorax. Lymph nodes: No thoracic adenopathy. Mediastinum: No pneumomediastinum. No mass or hematoma. Heart and great vessels: No pericardial effusion. Dilated cardiac chambers. Moderate scattered atherosclerotic plaques. The ascending aorta is dilated up to 4.6 cm. The aortic arch is dilated up to 4.5 cm proximally. The proximal descending thoracic aorta is dilated up to 4 cm. The distal descending thoracic aorta is dilated up to 3.9 cm. No periaortic hematoma. Chest wall: Normal. No masses. Upper abdomen: See same day CT chest abdomen pelvis. Bones: There is some streak artifact from a left shoulder arthroplasty. 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 Old healed anterolateral right 7th and 8th rib fractures. Multilevel disc and facet degeneration. 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 No worrisome focal bone lesion. IMPRESSION: 1. Mild respiratory motion. No pulmonary emboli seen or suspected. 2. Dilated main pulmonary artery may reflect pulmonary hypertension. 3. All 4 cardiac chambers are dilated. No pulmonary edema. 4. Thoracic aortic aneurysm. The ascending aorta measures 4.6 centimeters. The descending aorta measures up to 3.9 centimeters. 5. There are a couple of pulmonary nodules measuring up to 5 millimeters. Per the Fleischner Society criteria consider a follow-up chest CT in 12 months for patients who have a high risk of primary pulmonary malignancy. Please note that all CT scans at this facility use dose modulation, iterative reconstruction, and/or weight-based dosing when appropriate to reduce radiation dose to as low as reasonably achievable. Dictated by Ally Betancourt MD @ 03/06/2025 1:20:48 PM (Electronically Signed)
--- NOTE | 2025-03-06 11:50 | CRLHL7_ITS ---
For Patients: As a result of the Century Cures Act, medical imaging exams and procedure reports are released immediately into your electronic medical record. You may view this report before your referring provider. If you have questions, please contact your health care provider. INDICATION: Fall, syncope, possible head injury. TECHNIQUE: Noncontrast CT of the head with multiplanar reformats. COMPARISON: CT 06/02/2022. FINDINGS: No mass effect or midline shift. No hydrocephalus. No suspicious extra-axial collection cortical hemorrhage. Intracranial atherosclerosis. And moderate generalized parenchymal loss. Moderate regions of hypoattenuation in the subcortical and periventricular matter are nonspecific but typical for chronic small vessel ischemic changes. Examination is limited by motion artifact. Leftward deviation of the septum. The calvarium is intact. The scalp and soft tissues are grossly normal. Presumed bilateral lens replacement. The paranasal sinuses are grossly normal. IMPRESSION: 1. No acute intracranial abnormality. 2. No significant changes compared to the prior exam. Please note that all CT scans at this facility use dose modulation, iterative reconstruction, and/or weight-based dosing when appropriate to reduce radiation dose to as low as reasonably achievable. Dictated by Yonathan Otero MD @ 03/06/2025 12:52:16 PM (Electronically Signed)
[2025-03-06] MEDS: LACTATED RINGERS 1000 ML 1,000 ML IV (12:08)
[2025-03-06 12:11] LABS: Creatinine, Point-of-Care* 1.4 mg/dl (0.6-1.3)
[2025-03-06 12:15] LABS: Lactate* 1.1 mmol/L (0.5-1.9)
[2025-03-06 12:34] LABS: Albumin* 4.1 g/dL (3.3-5.0); Chloride* 91 mmol/L (96-114); Potassium* 4.0 mmol/L (3.6-5.1); Sodium* 126 mmol/L (135-149)
[2025-03-06 12:35] LABS: INR 1.00 (0.91-1.10); Prothrombin Time 14.0 Seconds
[2025-03-06 12:36] LABS: Blood Urea Nitrogen* 27 mg/dL (7-30); Creatinine* 1.2 mg/dL (0.5-1.5); Est. Creatinine Clearance* 42.75; Estimated Glomerular Filt Rate 59 ml/min; Hematocrit* 40.9 % (37.0-53.0); Hemoglobin* 13.7 gm/dL (13.5-17.5); Immature Granulocytes Abs Auto 0.02 K/uL (0.00-0.30); Immature Granulocytes Pct Auto 0.2 %; Lymphocytes Absolute Auto 1.40 K/uL (0.90-2.90); Mean Corpuscular HGB Conc 34 gm/dL (32-36); Mean Corpuscular Hemoglobin 31 pg (26-34); Mean Corpuscular Volume 92 fL (80-100); RDW Coefficient of Variation % 12.7 % (11.5-15.5); Red Blood Count* 4.44 m/uL (4.30-5.90); White Blood Count* 8.59 K/uL (4.50-11.00)
[2025-03-06 12:37] LABS: Alanine Aminotransferase* 21 U/L (4-50); Alkaline Phosphatase* 97 U/L (40-150); Anion Gap 8 mEq/L (7-15); Aspartate Amino Transferase* 30 U/L (12-35); Bilirubin Total* 0.8 mg/dL (0.1-1.5); Calcium* 10.3 mg/dL (8.4-10.6); Carbon Dioxide* 27 mmol/L (20-32); Glucose* 119 mg/dL (60-115); Total Protein* 7.8 g/dL (6.0-8.3)
[2025-03-06 12:39] LABS: Slide Review Reflex No
[2025-03-06 12:46] LABS: NT Pro B Type NatriureticPept* 281 pg/mL (See Note)
[2025-03-06 12:54] LABS: PCR FLU A Negative PCR FLU A (Negative); PCR FLU B Negative PCR FLU B (Negative); PCR RSV Negative PCR RSV (Negative); SARS PCR* Negative SARS-CoV-2 (Negative)
[2025-03-06] MEDS: VANCOMYCIN 1.5 GM/300 ML 1.5 GM/300 ML PIGGYBACK IVPB (13:25)
[2025-03-06] MEDS: LACTATED RINGERS 500 ML 500 ML IV (13:34)
[2025-03-06 14:10] LABS: Appearance Urine Clear (Clear)
[2025-03-06] MEDS: ACETAMINOPHEN 325 MG TABLET 650 MG PO (19:13)
[2025-03-06] MEDS: TAMSULOSIN HCL 0.4 MG CAPSULE PO (20:40)
[2025-03-06] MEDS: GABAPENTIN 300 MG CAPSULE PO (20:41)
[2025-03-06] MEDS: ATORVASTATIN CALCIUM 10 MG TABLET 20 MG PO (20:41)
[2025-03-06] MEDS: SODIUM CHLORIDE 0.9 % (FLUSH) 10 ML SYRINGE 5 ML IVF (20:41)
[2025-03-06] MEDS: METFORMIN ER 500 MG PO (20:41)
[2025-03-06] MEDS: OMEPRAZOLE 20 MG CAPSULE DR PO (21:36)
--- NOTE | 2025-03-06 22:50 | PM.IMHP1 ---
Assessment and Plan Assessment and plan (1) Cognitive impairment: Problem comment: I suspect significant dementia. Unclear if there is acute process contributing to his confusion at this time Status: Acute (2) Confusion: Status: Acute (3) Acute hyponatremia: Problem comment: Probably due to hydrochlorothiazide primarily Status: Acute (4) Orthostatic hypotension: Problem comment: Possibly due to medication air. Continue to monitor. Hold hydrochlorothiazide Status: Acute (5) Hypertension: Status: Acute (6) Medication noncompliance due to cognitive impairment: Problem comment: Likely needs someone to set up and monitor medication administration Status: Suspected (7) Discharge planning issues: Problem comment: Patient can return home with his family if no acute process is identified. Ongoing concern about need for family support and supervision with probable dementia and possibility of divorce. Status: Acute Plan 84-year-old male admitted to the hospital with possible fall or syncope associated with low blood pressure. Also hyponatremia. Hold hydrochlorothiazide and monitor blood pressure and monitor for symptoms. Appears to need further cognitive evaluation and probable increased supervision especially for medications at home. Total Time Spent Total Time Spent: Total time spent today is 80 minutes in reviewing outside records, coordination of care, discussion with patient's grandson and other providers ongoing management of dementia and falls. Hospitalist- H&P: HPI History of Present Illness Date Seen: 03/06/25 Chief complaint: Lightheaded Narrative: Navi Chao is a 84 year old male admitted to the hospital with a fall and possible syncopal episode. Patient appears to have some cognitive impairment or dementia and is unable to give much detail of the events. He lives with his grandson who gives additional information. Normally patient uses a walker or hold onto the martinez and furniture when he walks. His grandson thinks that he was holding onto a chair which moved well he was holding it causing him to fall. This was possibly unwitnessed and yet heard by his grandson who came to find him lying on the floor. Unknown if there was a head injury. Initially he said yes and then he said no. Unknown loss of consciousness as well. Patient reports he has otherwise been generally feeling well except he has been noting some burning in his chest and in his abdomen. This is bothering him quite a bit this morning but is feeling better now. He may have had this on and off for some time. History is quite vague. He lives in [place] with his , disabled daughter and grandson. He has been for his for 10-20 years though they continue to live in the same house. In the past month they are proceeding with hiring lead mechanical engineer to get a divorce. The grandson believes that his grandfather has been having memory problems for 1-2 years. He notes that he hoards his medications he is not sure if he is taking them properly. The paramedics found his blood pressure to be soft with systolic pressures in the 80s to 90s. That has improved since arriving in the emergency department. He has a history of diabetes mellitus though he tells me takes no medicine for that. This has peripheral neuropathy, hypertension, anxiety. He does not know his medications. He sees a doctor in [place] [facility] Narrative: Other than the burning in his abdomen and chest he reports otherwise feeling well. No cough, cold, fever, short of breath, nausea, vomiting, diarrhea, constipation, blood in the stool, urinary problems. Medical Decision Making Medical Decision Making Has patient completed a Health Care Directive: No [facility] Medical History (Updated 03/06/25 @ 23:05 by Florentin Barcenas MD) Medication noncompliance due to cognitive impairment ?R41.9 - Unspecified symptoms and signs involving cognitive functions and awareness (ICD-10) ?Z91.148 - Patient's other noncompliance with medication regimen for other reason (ICD-10) Discharge planning issues ?Z75.8 - Other problems related to medical facilities and other health care (ICD-10) Cognitive impairment ?R41.89 - Other symptoms and signs involving cognitive functions and awareness (ICD-10) Surgical History 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) ?Z98.890 - Other specified postprocedural states (ICD-10) Status post shoulder joint replacement ?Z96.619 - Presence of unspecified artificial shoulder joint (ICD-10) Status post repair of ventral hernia ?Z98.890 - Other specified postprocedural states (ICD-10) ?Z87.19 - Personal history of other diseases of the digestive system (ICD-10) Status post cataract extraction (09/17/10) ?Z98.49 - Cataract extraction status, unspecified eye (ICD-10) Status post arthroscopy of left knee (11/13/08) ?Z98.890 - Other specified postprocedural states (ICD-10) Social History (Updated 03/06/25 @ 22:59 by Florentin Barcenas MD) Narrative: Former smoker. According to his grandson the primary person to contact is the patient's daughter, Bri, who lives nearby in [place] phone number [phone]. What is your current living situation?: I presently have a place to live Problems where you live: no known problems Problems where you live details: Doesnt trust In the past 12 months, utilities in danger of being shut off: no In past 12 months, lack of transportation kept you from medical appts, meetings, work, or getting things needed for daily living: no In the past 12 mos, have been you worried that your food would run out before you had money to buy more?: never true In the past 12 mos, the food you bought just didn't last and you didn't have money to buy more?: never true Smoking Status: Former smoker Do you use any of these nicotine containing products: None Second hand tobacco smoke exposure: No How often do you have a drink containing alcohol: never How often do you have six or more drinks on one occasion: Never AUDIT-C Alcohol total score: 0 Non-prescribed substance use: denies use Caffeine: Yes How often does anyone, including family, friends and others, physically hurt you: never How often does anyone, including family, friends and others, insult or talk down to you: sometimes How often does anyone, including family, friends and others, threaten you with harm: sometimes How often does anyone, including family, friends and others, scream or curse at you: sometimes service: No Health Related Social Needs: Other personal risk factors, not elsewhere classified (Z91.89) Meds Home Medications and Allergies Home Medications ?Medication ?Instructions ?Recorded ?Confirmed ?Type aspirin 81 mg capsule 81 mg PO QDAY #100 caps 05/05/22 03/06/25 Rx polyethylene glycol 3350 17 17 g PO DAILY #510 grams 06/25/22 03/06/25 Rx gram/dose oral powder amoxicillin 500 mg capsule 2,000 mg (4 x 500 mg) PO ONCE #4 07/29/22 03/06/25 Rx caps clonidine HCl 0.2 mg tablet 0.2 mg PO BID #180 tabs 07/03/23 03/06/25 Rx furosemide 40 mg tablet 40 mg PO .Daily as needed PRN 07/03/23 03/06/25 Rx edema #90 tabs gabapentin 300 mg capsule 600 mg (2 x 300 mg) PO BID #360 07/03/23 03/06/25 Rx caps hydrochlorothiazide 50 mg tablet 50 mg PO DAILY #90 tabs 07/03/23 03/06/25 Rx olmesartan 40 mg tablet 40 mg PO DAILY #90 tabs 07/03/23 03/06/25 Rx omeprazole 20 mg capsule,delayed 20 mg PO DAILY #90 caps 07/03/23 03/06/25 Rx release tamsulosin 0.4 mg capsule 0.4 mg PO BID #180 caps 07/03/23 03/06/25 Rx amlodipine 5 mg tablet 5 mg PO DAILY 03/06/25 03/06/25 History atorvastatin 20 mg tablet 20 mg PO HS 03/06/25 03/06/25 History cholecalciferol (vitamin D3) 50 50 mcg PO DAILY 03/06/25 03/06/25 History mcg (2,000 unit) capsule metformin 850 mg tablet 850 mg PO BID 03/06/25 03/06/25 History multivitamin (Daily Multi-Vitamin 1 tab PO DAILY 03/06/25 03/06/25 History tablet) nortriptyline 50 mg capsule 50 mg PO HS 03/06/25 03/06/25 History omega-3 fatty acids 1,000 mg 1,000 mg PO DAILY 03/06/25 03/06/25 History capsule Allergies Allergy/AdvReac Type Severity Reaction Status Date / Time losartan Allergy Mild vomiting Verified 03/06/25 11:33 and headaches Exam Narrative: Exam Narrative: He is alert and oriented to being in [facility]. Unable to give much detail about recent events. Head is normal without obvious trauma. Eyes normal. Oropharynx normal. Tongue is midline. No facial asymmetry. Extraocular movements are full. Visual zendejas are intact. Neck is supple without mass or adenopathy. Respirations are clear to auscultation. Cardiovascular: S1, S2, regular rate and rhythm. Abdomen: Bowel sounds active. Abdomen is soft without tenderness or mass. External genitalia normal. He moves all 4 extremities well without focal weakness. Const: Vital Signs, click to edit/add: Vital Signs - 24 hr 03/06/25 11:28 03/06/25 11:28 03/06/25 11:29 Temperature 96.8 F L Pulse Rate 58 L Pulse Rate [Pulse Oximeter] 56 L Pulse Rate [orthos tatic lying] Pulse Rate [orthos tatic sitting] Pulse Rate [orthos tatic standing] Respiratory Rate 18 15 Blood Pressure 126/70 Blood Pressure [Le ft Arm] Blood Pressure [Ri ght Upper Arm] 110/70 Blood Pressure [or thostatic lying] 110/70 Blood Pressure [or thostatic sitting] 98/68 Blood Pressure [or thostatic standing ] 89/69 L Pulse Oximetry 95 97 Oxygen Delivery Me thod Room Air 03/06/25 11:30 03/06/25 11:32 03/06/25 11:42 Temperature Pulse Rate 57 L 57 L Pulse Rate [Pulse Oximeter] Pulse Rate [orthos tatic lying] Pulse Rate [orthos tatic sitting] Pulse Rate [orthos tatic standing] Respiratory Rate 14 20 10 L Blood Pressure 110/70 98/68 Blood Pressure [Le ft Arm] Blood Pressure [Ri ght Upper Arm] Blood Pressure [or thostatic lying] Blood Pressure [or thostatic sitting] Blood Pressure [or thostatic standing ] Pulse Oximetry 97 96 Oxygen Delivery Me thod 03/06/25 11:44 03/06/25 11:45 03/06/25 11:50 Temperature Pulse Rate 62 Pulse Rate [Pulse Oximeter] Pulse Rate [orthos tatic lying] Pulse Rate [orthos tatic sitting] Pulse Rate [orthos tatic standing] Respiratory Rate 16 10 L 17 Blood Pressure 89/69 L 131/74 Blood Pressure [Le ft Arm] Blood Pressure [Ri ght Upper Arm] Blood Pressure [or thostatic lying] Blood Pressure [or thostatic sitting] Blood Pressure [or thostatic standing ] Pulse Oximetry Oxygen Delivery Me thod Room Air 03/06/25 12:00 03/06/25 13:21 03/06/25 13:30 Temperature Pulse Rate 55 L 65 62 Pulse Rate [Pulse Oximeter] Pulse Rate [orthos tatic lying] Pulse Rate [orthos tatic sitting] Pulse Rate [orthos tatic standing] Respiratory Rate 17 16 14 Blood Pressure Blood Pressure [Le ft Arm] Blood Pressure [Ri ght Upper Arm] Blood Pressure [or thostatic lying] Blood Pressure [or thostatic sitting] Blood Pressure [or thostatic standing ] Pulse Oximetry 97 96 98 Oxygen Delivery Me thod 03/06/25 13:31 03/06/25 13:32 03/06/25 13:45 Temperature Pulse Rate 63 61 65 Pulse Rate [Pulse Oximeter] Pulse Rate [orthos tatic lying] Pulse Rate [orthos tatic sitting] Pulse Rate [orthos tatic standing] Respiratory Rate 11 L 12 13 Blood Pressure 144/79 H 141/86 H Blood Pressure [Le ft Arm] Blood Pressure [Ri ght Upper Arm] Blood Pressure [or thostatic lying] Blood Pressure [or thostatic sitting] Blood Pressure [or thostatic standing ] Pulse Oximetry 98 97 97 Oxygen Delivery Me thod Room Air 03/06/25 14:00 03/06/25 14:30 03/06/25 15:15 Temperature 97.6 F Pulse Rate Pulse Rate [Pulse Oximeter] 56 L 62 72 Pulse Rate [orthos tatic lying] Pulse Rate [orthos tatic sitting] Pulse Rate [orthos tatic standing] Respiratory Rate 16 16 15 Blood Pressure Blood Pressure [Le ft Arm] 133/66 Blood Pressure [Ri ght Upper Arm] 147/71 H 134/82 Blood Pressure [or thostatic lying] Blood Pressure [or thostatic sitting] Blood Pressure [or thostatic standing ] Pulse Oximetry 98 94 99 Oxygen Delivery Me thod Room Air Room Air Room Air 03/06/25 15:48 03/06/25 15:48 03/06/25 20:01 Temperature 97.6 F Pulse Rate Pulse Rate [Pulse Oximeter] 72 Pulse Rate [orthos tatic lying] 83 Pulse Rate [orthos tatic sitting] 89 Pulse Rate [orthos tatic standing] 89 Respiratory Rate 15 Blood Pressure Blood Pressure [Le ft Arm] 133/66 Blood Pressure [Ri ght Upper Arm] Blood Pressure [or thostatic lying] 130/90 H Blood Pressure [or thostatic sitting] 128/90 H Blood Pressure [or thostatic standing ] 117/89 Pulse Oximetry 99 Oxygen Delivery Me thod Room Air Room Air 03/06/25 20:11 Temperature 97.6 F Pulse Rate Pulse Rate [Pulse Oximeter] 83 Pulse Rate [orthos tatic lying] Pulse Rate [orthos tatic sitting] Pulse Rate [orthos tatic standing] Respiratory Rate 17 Blood Pressure Blood Pressure [Le ft Arm] 130/95 H Blood Pressure [Ri ght Upper Arm] Blood Pressure [or thostatic lying] Blood Pressure [or thostatic sitting] Blood Pressure [or thostatic standing ] Pulse Oximetry 95 Oxygen Delivery Me thod Room Air Hospitalist - H&P: Result Labs Labs: Short CBC 03/06/25 Range/Units 12:07 WBC 8.59 (4.50-11.00) K/uL Hgb 13.7 (13.5-17.5) gm/dL Hct 40.9 (37.0-53.0) % Plt Count 213 (140-440) K/uL BMP 03/06/25 12:07 Sodium 126 L Potassium 4.0 Chloride 91 L Carbon Dioxide 27 BUN 27 Creatinine 1.2 Glucose 119 H Calcium 10.3 Cardiac Enzymes 03/06/25 Range/Units 12:07 Troponin I 0.02 (0.01-0.04) ng/mL Liver Function 03/06/25 Range/Units 12:07 Total Bilirubin 0.8 (0.1-1.5) mg/dL AST 30 (12-35) U/L ALT 21 (4-50) U/L Alkaline Phosphatase 97 (40-150) U/L Albumin 4.1 (3.3-5.0) g/dL Urine 03/06/25 Range/Units 14:00 Urine Color Yellow (Yellow) Urine Appearance Clear (Clear) Urine pH 7.0 (5.0-8.5) Ur Specific [place] 1.015 (1.000-1.030) Urine Protein Trace A (Negative) Urine Glucose (UA) Negative (Negative) Imaging CT scan - head: Radiologist's impression: NDICATION: Fall, syncope, possible head injury. TECHNIQUE: Noncontrast CT of the head with multiplanar reformats. COMPARISON: CT 06/02/2022. FINDINGS: No mass effect or midline shift. No hydrocephalus. No suspicious extra-axial collection cortical hemorrhage. Intracranial atherosclerosis. And moderate generalized parenchymal loss. Moderate regions of hypoattenuation in the subcortical and periventricular matter are nonspecific but typical for chronic small vessel ischemic changes. Examination is limited by motion artifact. Leftward deviation of the septum. The calvarium is intact. The scalp and soft tissues are grossly normal. Presumed bilateral lens replacement. The paranasal sinuses are grossly normal. IMPRESSION: 1. No acute intracranial abnormality. 2. No significant changes compared to the prior exam. Cervical spine CT: Radiologist's impression: Indication: fall, syncope, possible head injury, hypotension, L abdominal tenderness Technique: Noncontrast axial CT of the cervical spine with coronal and sagittal reformats are provided. Comparison: No prior studies available for comparison at this institution. Findings: Straightening and slight reversal of normal cervical lordosis. Ankylosis of the C3-4 vertebral bodies. Advanced degenerative changes at the anterior atlantoaxial articulation. No acute fracture. No aggressive osseous lesions. No prevertebral or paraspinal edema. Grade 1 anterolisthesis at C3-4, C4-5 and C7-T1. The mastoid air cells are clear. C1-2: No spinal canal stenosis. C2-3: Yall-na-hkgjkehe left facet joint arthrosis. No significant spinal canal stenosis. Mild widening of the left facet joint. C3-4: Ankylosis. Advanced left facet arthrosis. Mild to moderate left neural foraminal narrowing. No significant spinal canal stenosis or right neural foraminal narrowing. C4-5: Advanced left and mild right facet joint arthrosis. Mild left neural foraminal narrowing. No right neural foraminal narrowing. No significant spinal canal stenosis. C5-6: Posterior endplate osteophytic ridging. Uncovertebral joint hypertrophy. Bilateral facet arthrosis. Mild neural foramen narrowing bilaterally. No significant spinal canal stenosis. C6-7: Posterior endplate osteophytic spurring and uncovertebral joint hypertrophy. No significant spinal canal stenosis or neural foraminal narrowing. C7-T1: Grade 1 anterolisthesis. Moderate facet joint arthrosis. No significant spinal canal stenosis or neural foraminal narrowing. Impression: 1. No convincing radiographic evidence of acute osseous injury. 2. Scattered degenerative changes of the cervical spine. CT scan - chest: Radiologist's impression: INDICATION: Fall, syncope, hypotension. COMPARISON: Same day CT abdomen pelvis TECHNIQUE: CT angiogram chest with contrast, pulmonary embolism protocol. Multiplanar axial, coronal, and sagittal reformats are included. MIP images to improve detection of pulmonary emboli are included. Intravenous contrast: 95 mL Isovue 370. FINDINGS: PE: Well-timed contrast bolus. There is some motion artifact in the lung bases. No pulmonary emboli seen. Mildly dilated 3.5 cm main pulmonary artery. Moderately dilated right heart chambers. No reflux of contrast below the diaphragm. Airway: Respiratory motion. No central tracheobronchial lesion. Lungs: Respiratory motion mostly in the bases. There is a 6 millimeter subpleural nodule in the right lower lobe on series 606, image 163. There is a 4 millimeter subpleural nodule in the left lower lobe on series 606, image 163. No consolidations. Pleura: No pleural effusion. No pneumothorax. Lymph nodes: No thoracic adenopathy. Mediastinum: No pneumomediastinum. No mass or hematoma. Heart and great vessels: No pericardial effusion. Dilated cardiac chambers. Moderate scattered atherosclerotic plaques. The ascending aorta is dilated up to 4.6 cm. The aortic arch is dilated up to 4.5 cm proximally. The proximal descending thoracic aorta is dilated up to 4 cm. The distal descending thoracic aorta is dilated up to 3.9 cm. No periaortic hematoma. Chest wall: Normal. No masses. Upper abdomen: See same day CT chest abdomen pelvis. Bones: There is some streak artifact from a left shoulder arthroplasty. 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 Old healed anterolateral right 7th and 8th rib fractures. Multilevel disc and facet degeneration. 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 No worrisome focal bone lesion. IMPRESSION: 1. Mild respiratory motion. No pulmonary emboli seen or suspected. 2. Dilated main pulmonary artery may reflect pulmonary hypertension. 3. All 4 cardiac chambers are dilated. No pulmonary edema. 4. Thoracic aortic aneurysm. The ascending aorta measures 4.6 centimeters. The descending aorta measures up to 3.9 centimeters. 5. There are a couple of pulmonary nodules measuring up to 5 millimeters. Per the Fleischner Society criteria consider a follow-up chest CT in 12 months for patients who have a high risk of primary pulmonary malignancy. CT scan - abdomen: Radiologist's impression: INDICATION: Fall, syncope, hypotension, abdominal tenderness. COMPARISON: Same-day CT angiogram chest TECHNIQUE: CT of the abdomen and pelvis with intravenous contrast. Multiplanar axial, coronal, and sagittal reformats were reconstructed. Contrast: 95 mL Isovue 370. FINDINGS: Lung bases: Please see same-day diagnostic chest CT. Liver: There is a 1.1 centimeter cyst in hepatic segment III. There are not any worrisome liver lesions. Gallbladder and bile ducts: Normal gallbladder. No bile duct dilation. Pancreas: Normal. Spleen: Normal. Adrenal glands: Normal. Kidneys: Normal overall renal size and position. There are numerous bilateral renal cysts. The largest cyst is in the right upper pole measures 7.9 x 5.5 cm. There are a few smaller left renal cysts that measure up to 1.7 cm. No solid mass. There is hyperdense contrast excreted into the collecting system, presumably from the CT angiogram chest performed earlier today. No large urinary tract calculi are seen. No urinary tract dilation. Urinary bladder: Small amount of excreted hyperdense contrast in the bladder. Pelvis: No cyst or mass. Vessels: Moderate to heavy atherosclerosis. Lower thoracic aorta measures 3.9 centimeters in diameter. Upper abdominal aorta measures 3.1 centimeters in diameter. There is an infrarenal abdominal aortic aneurysm that measures 3.9 x 3.9 cm on series 502, image 85. This extends all the way through the bifurcation. No periaortic hematoma or stranding. There is a focal outpouching along the medial margin that measures about 1.5 centimeters. 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 Measures up to 8 millimeters. Bowel: No dilated or inflamed bowel. Appendix not seen. Moderate diffuse colonic diverticulosis without diverticulitis. Large stool burden. Lymph nodes: No adenopathy. Peritoneum: No ascites. Abdominal wall: Prior umbilical hernia repair. No recurrent hernia. No inguinal hernia. Bones: L3 superior endplate compression fracture with about 10 percent loss of height is age indeterminate. No discrete fracture line seen. Old healed right anterolateral 7th and 8th rib fractures. No focal worrisome bone lesions. IMPRESSION: 1. Age-indeterminate L3 compression fracture. No comparisons available. No findings to indicate this is acute. There is about 10% loss of height. 2. Thoracic and abdominal aortic aneurysm measuring up to 3.9 cm in the lower thorax and infrarenal segments.
--- NOTE | 2025-03-06 23:31 | PC.NURSE ---
Patient alert and orientedx4 ( Self, situation, place,Knows who the president is but not the date). Able to communicate needs. Patient complained of both chest and abdominal pain this shift. PRN Tylenol was given with effect. He complained of heart burn after ambulating to the bathroom. EKG done showed NSR with 1AVB ( No new changes noted from the one performed in ED earlier). MD was notified. New orders obtained. Patient requested milk and was also given new scheduled omeprozole. Patient's heartburn resolved. At bedtime, the patient thought that something (a bug) was biting him behind his bilateral ears. RN assesment did not note any bug bites. Skin noted to be dry. RN cleaned the areas and applied lotion. Patient was sleeping comfortably at reassessment. Patient remains stable. Vital signs WNL. Ambulates with Ax1 with walker and gait belt to the bathroom.
[2025-03-07] MEDS: MAG HYDROX/ALUMINUM HYD/SIMETH 30 ML ORAL.SUSP 15 ML PO (00:21)
[2025-03-07 00:25] VITALS: PULSE 83
[2025-03-07 03:00] VITALS: BP 118/72; PULSE 74; RESP 16; O2SAT 97
[2025-03-07 05:00] VITALS: BMI 27.6; BMI 27.7
[2025-03-07 06:28] LABS: Hematocrit* 37.9 % (37.0-53.0); Hemoglobin* 12.8 gm/dL (13.5-17.5); Immature Granulocytes Abs Auto 0.01 K/uL (0.00-0.30); Immature Granulocytes Pct Auto 0.1 %; Lymphocytes Absolute Auto 2.32 K/uL (0.90-2.90); Mean Corpuscular HGB Conc 34 gm/dL (32-36); Mean Corpuscular Hemoglobin 31 pg (26-34); Mean Corpuscular Volume 91 fL (80-100); RDW Coefficient of Variation % 12.8 % (11.5-15.5); Red Blood Count* 4.16 m/uL (4.30-5.90); White Blood Count* 7.30 K/uL (4.50-11.00)
[2025-03-07 06:32] LABS: Chloride* 91 mmol/L (96-114); Slide Review Reflex No; Sodium* 127 mmol/L (135-149)
[2025-03-07 06:33] LABS: Potassium* 3.8 mmol/L (3.6-5.1)
[2025-03-07 06:35] LABS: Blood Urea Nitrogen* 25 mg/dL (7-30); Creatinine* 1.0 mg/dL (0.5-1.5); Est. Creatinine Clearance* 51.30; Estimated Glomerular Filt Rate 73 ml/min
[2025-03-07 06:36] LABS: Anion Gap 10 mEq/L (7-15); Calcium* 9.5 mg/dL (8.4-10.6); Carbon Dioxide* 26 mmol/L (20-32); Glucose* 118 mg/dL (60-115)
--- NOTE | 2025-03-07 06:45 | PC.NURSE ---
shift note : pt oriented to self , place, time, not situation. pt recalls falling in his kitchen on his left side. reports epigastric and L side rib pain. prn med given. see EMAR. ice applied. pt up to BR w/ SBA. voids IND. edema bilaterally in feet, TEDS applied. pt up to chair , call light w/i reach.
[2025-03-07 06:55] VITALS: BP 110/73; BP 117/73; BP 126/80; PULSE 64; PULSE 73; PULSE 79
[2025-03-07 07:00] VITALS: BP 110/73; BP 117/73; BP 126/80; PULSE 64; PULSE 73; PULSE 74; PULSE 79
[2025-03-07] MEDS: GABAPENTIN 300 MG CAPSULE PO (09:10)
[2025-03-07] MEDS: METFORMIN ER 500 MG PO (09:10)
[2025-03-07] MEDS: OMEPRAZOLE 20 MG CAPSULE DR PO (09:10)
[2025-03-07] MEDS: ACETAMINOPHEN 325 MG TABLET 650 MG PO (09:10)
[2025-03-07] MEDS: SODIUM CHLORIDE 0.9 % (FLUSH) 10 ML SYRINGE 5 ML IVF (09:11)
[2025-03-07] MEDS: TAMSULOSIN HCL 0.4 MG CAPSULE PO (09:11)
--- NOTE | 2025-03-07 10:11 | CRLHL7_ITS ---
For Patients: As a result of the Cures Act, medical imaging exams and procedure reports are released immediately into your electronic medical record. You may view this report before your referring provider. If you have questions, please contact your health care provider. Indication: fall, pain, limited finger mobility Technique: Three views left long finger IMPRESSION: Incidental cyst in the distal aspect of the left long finger middle phalanx. Mild multifocal degenerative joint disease without erosive arthropathy. There is no fracture. No dislocation. Dictated by Yonathan Lomeli MD @ 03/07/2025 11:45:20 AM (Electronically Signed)
--- NOTE | 2025-03-07 11:02 | P.DS_ITS ---
DS: Providers Provider Date Seen: 03/07/25 Date of admission: 03/06/25 14:56 Primary care physician: Brian Leger MD Admitting Clinician: Jerry Barcenas MD Consults: 03/06/25 16:07 Consult to Occupational Therapy [CONS] Routine Comment: Reason(s) for OT Consult:: Evaluate and Treat Any Restrictions?:: No Restrictions Consult to Physical Therapy [CONS] Routine Comment: Reason(s) for PT Consult:: Evaluate and Treat Any Restrictions?:: No Restrictions Consult to Technology Architect [CONS] Routine Comment: Reason for Consult:: Discharge Planning Needs Attending Physician on discharge: Madisyn Hoffmann [facility] Date of Discharge: 03/07/25 DS: Diagnosis Discharge Diagnosis (1) Fall: Status: Acute Problem details: Patient reported to trip while walking between a chair and cabinet in the dining room without his walker. Physical therapy assessed, no ongoing outpatient needs. Discussed importance of using walker at all time and having family/friends rearrange furniture to make clear paths in the home. (2) Chest wall contusion: Status: Acute Problem details: Status post fall. CT chest without evidence of rib fracture. No pneumothorax. Continue with symptomatic cares. (3) Injury of left middle finger: Status: Acute Problem details: Status post fall. X-ray shows [] (4) Orthostatic hypotension: Status: Acute Problem details: As noted in ED, suspected due to medication mismanagement in setting of cognitive impairment. Repeat orthostatics following admission to the floor are unremarkable. Discharged with instructions to continue to hold HCTZ and furosemide for now. Continues on amlodipine, olmesartan, clonidine (which cannot be abruptly discontinued) with recommendations for outpatient follow-up with PCP and Nephrology. (5) Acute hyponatremia: Status: Acute Problem details: Sodium on admission 126, improved to 127. This appears to be acute on chronic. Sodium since 2022 has been 126-129. Continue to hold HCTZ on discharge. Recheck sodium with PCP this week in clinic follow-up. (6) Cognitive impairment: Status: Acute Problem details: Suspected dementia, no acute etiology declared. Occupational therapy assessed with poor testing outcome. Will schedule for further evaluation in outpatient occupational therapy clinic. Recommend formal neurocognitive testing in the outpatient setting. (7) Medication noncompliance due to cognitive impairment: Status: Suspected Problem details: Recommend assistance in setting up and monitoring medication administration. PCP could look into qualifications for Chronic Care Management program in the clinic or bubble packaging through his pharmacy, home health medication assistance, or assistance through family/friends. (8) Hypertension: Status: Acute Problem details: Currently on amlodipine, olmesartan, clonidine, HCTZ, and furosemide p.r.n.. Will attempt to schedule outpatient consult with Nephrology and ongoing medication management with PCP. Goal to minimize number of medications for optimal blood pressure control in setting of long-term hypertension and diabetes mellitus, given cognitive impairment and risks for ongoing medication errors. Incidental thoracic and abdominal aortic aneurysm as noted below. 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 Resume metformin at discharge. PCP to review that appropriate follow-up with Nephrology, Ophthalmology, Podiatry if needed are in place. (10) Thoracic aortic aneurysm: Status: Acute Problem details: CT 03/06/2025 shows The ascending aorta measures 4.6 centimeters. The descending aorta measures up to 3.9 centimeters. (11) Abdominal aortic aneurysm: Status: Acute Problem details: CT abdomen pelvis 03/06/2025 shows Thoracic and abdominal aortic aneurysm measuring up to 3.9 cm in the lower thorax and infrarenal segments (12) Compression fracture of L3 vertebra: Status: Acute Problem details: CT abdomen pelvis 03/06/2025 shows Age-indeterminate L3 compression fracture. No comparisons available. No findings to indicate this is acute. There is about 10% loss of height. (13) Pulmonary nodules: Status: Acute Problem details: CT 03/06/2025 shows There are a couple of pulmonary nodules measuring up to 5 millimeters. Per the Fleischner Society criteria consider a follow-up chest CT in 12 months for patients who have a high risk of primary pulmonary malignancy DS: Summary Hospital Course Hospital Course: Course of care and details as noted above. Remainder of chronic medical comorbidities were monitored and managed with home medications. Status at Discharge Functional status at discharge: uses cane/walker Overall status at discharge: patient is back to baseline Time Spent with Patient Time attestation: Total time spent providing and/or coordinating discharge services: Time spent: Greater than 30 minutes Exam Narrative: Exam Narrative: PHYSICAL EXAM General: Pleasant, conversant, NAD Cardiovascular: RRR Pulmonary: No dyspnea Skin: Warm, dry. Const: Vital Signs, click to edit/add: Vital Signs - 24 hr 03/06/25 11:28 03/06/25 11:28 03/06/25 11:29 Temperature 96.8 F L Pulse Rate 58 L Pulse Rate [Pulse Oximeter] 56 L Pulse Rate [orthos tatic lying] Pulse Rate [orthos tatic sitting] Pulse Rate [orthos tatic standing] Respiratory Rate 18 15 Blood Pressure 126/70 Blood Pressure [Le ft Arm] Blood Pressure [Ri ght Upper Arm] 110/70 Blood Pressure [or thostatic lying] 110/70 Blood Pressure [or thostatic sitting] 98/68 Blood Pressure [or thostatic standing ] 89/69 L Pulse Oximetry 95 97 Oxygen Delivery Me thod Room Air 03/06/25 11:30 03/06/25 11:32 03/06/25 11:42 Temperature Pulse Rate 57 L 57 L Pulse Rate [Pulse Oximeter] Pulse Rate [orthos tatic lying] Pulse Rate [orthos tatic sitting] Pulse Rate [orthos tatic standing] Respiratory Rate 14 20 10 L Blood Pressure 110/70 98/68 Blood Pressure [Le ft Arm] Blood Pressure [Ri ght Upper Arm] Blood Pressure [or thostatic lying] Blood Pressure [or thostatic sitting] Blood Pressure [or thostatic standing ] Pulse Oximetry 97 96 Oxygen Delivery Me thod 03/06/25 11:44 03/06/25 11:45 03/06/25 11:50 Temperature Pulse Rate 62 Pulse Rate [Pulse Oximeter] Pulse Rate [orthos tatic lying] Pulse Rate [orthos tatic sitting] Pulse Rate [orthos tatic standing] Respiratory Rate 16 10 L 17 Blood Pressure 89/69 L 131/74 Blood Pressure [Le ft Arm] Blood Pressure [Ri ght Upper Arm] Blood Pressure [or thostatic lying] Blood Pressure [or thostatic sitting] Blood Pressure [or thostatic standing ] Pulse Oximetry Oxygen Delivery Me thod Room Air 03/06/25 12:00 03/06/25 13:21 03/06/25 13:30 Temperature Pulse Rate 55 L 65 62 Pulse Rate [Pulse Oximeter] Pulse Rate [orthos tatic lying] Pulse Rate [orthos tatic sitting] Pulse Rate [orthos tatic standing] Respiratory Rate 17 16 14 Blood Pressure Blood Pressure [Le ft Arm] Blood Pressure [Ri ght Upper Arm] Blood Pressure [or thostatic lying] Blood Pressure [or thostatic sitting] Blood Pressure [or thostatic standing ] Pulse Oximetry 97 96 98 Oxygen Delivery Me thod 03/06/25 13:31 03/06/25 13:32 03/06/25 13:45 Temperature Pulse Rate 63 61 65 Pulse Rate [Pulse Oximeter] Pulse Rate [orthos tatic lying] Pulse Rate [orthos tatic sitting] Pulse Rate [orthos tatic standing] Respiratory Rate 11 L 12 13 Blood Pressure 144/79 H 141/86 H Blood Pressure [Le ft Arm] Blood Pressure [Ri ght Upper Arm] Blood Pressure [or thostatic lying] Blood Pressure [or thostatic sitting] Blood Pressure [or thostatic standing ] Pulse Oximetry 98 97 97 Oxygen Delivery Me thod Room Air 03/06/25 14:00 03/06/25 14:30 03/06/25 15:15 Temperature 97.6 F Pulse Rate Pulse Rate [Pulse Oximeter] 56 L 62 72 Pulse Rate [orthos tatic lying] Pulse Rate [orthos tatic sitting] Pulse Rate [orthos tatic standing] Respiratory Rate 16 16 15 Blood Pressure Blood Pressure [Le ft Arm] 133/66 Blood Pressure [Ri ght Upper Arm] 147/71 H 134/82 Blood Pressure [or thostatic lying] Blood Pressure [or thostatic sitting] Blood Pressure [or thostatic standing ] Pulse Oximetry 98 94 99 Oxygen Delivery Me thod Room Air Room Air Room Air 03/06/25 15:48 03/06/25 15:48 03/06/25 20:01 Temperature 97.6 F Pulse Rate Pulse Rate [Pulse Oximeter] 72 Pulse Rate [orthos tatic lying] 83 Pulse Rate [orthos tatic sitting] 89 Pulse Rate [orthos tatic standing] 89 Respiratory Rate 15 Blood Pressure Blood Pressure [Le ft Arm] 133/66 Blood Pressure [Ri ght Upper Arm] Blood Pressure [or thostatic lying] 130/90 H Blood Pressure [or thostatic sitting] 128/90 H Blood Pressure [or thostatic standing ] 117/89 Pulse Oximetry 99 Oxygen Delivery Me thod Room Air Room Air 03/06/25 20:11 03/06/25 23:59 03/06/25 23:59 Temperature 97.6 F 98.1 F Pulse Rate Pulse Rate [Pulse Oximeter] 83 84 Pulse Rate [orthos tatic lying] Pulse Rate [orthos tatic sitting] Pulse Rate [orthos tatic standing] Respiratory Rate 17 16 16 Blood Pressure Blood Pressure [Le ft Arm] 130/95 H 138/92 H Blood Pressure [Ri ght Upper Arm] Blood Pressure [or thostatic lying] Blood Pressure [or thostatic sitting] Blood Pressure [or thostatic standing ] Pulse Oximetry 95 96 Oxygen Delivery Me thod Room Air Room Air 03/07/25 00:25 03/07/25 03:00 03/07/25 06:55 Temperature Pulse Rate 83 Pulse Rate [Pulse Oximeter] 74 Pulse Rate [orthos tatic lying] 64 Pulse Rate [orthos tatic sitting] 73 Pulse Rate [orthos tatic standing] 79 Respiratory Rate 16 Blood Pressure Blood Pressure [Le ft Arm] 118/72 Blood Pressure [Ri ght Upper Arm] Blood Pressure [or thostatic lying] 117/73 Blood Pressure [or thostatic sitting] 126/80 Blood Pressure [or thostatic standing ] 110/73 Pulse Oximetry 97 Oxygen Delivery Me thod Room Air DS: Data Data Completed and Pending Labs on day of discharge: Labs from last 24 hours 03/07/25 03/06/25 03/06/25 06:09 18:47 16:07 WBC 7.30 RBC 4.16 L Hgb 12.8 L Hct 37.9 MCV 91 MCH 31 MCHC 34 RDW Coeff of Aye 12.8 Plt Count 199 Neut % (Auto) 52.9 Lymph % (Auto) 31.8 Spencer % (Auto) 6.3 Eos % (Auto) 8.4 H Baso % (Auto) 0.5 Neut # (Auto) 3.86 Lymph # (Auto) 2.32 Spencer # (Auto) 0.50 Eos # (Auto) 0.60 H Baso # (Auto) 0.04 Abs Immat Gran (auto) 0.01 Imm/Tot Granulo (auto) 0.1 INR Sodium 127 L Potassium 3.8 Chloride 91 L Carbon Dioxide 26 Anion Gap 10 BUN 25 Creatinine 1.0 Estimated Creat Clear 51.30 Estimated GFR 73 Glucose 118 H Hemoglobin A1c Lactate Calcium 9.5 Total Bilirubin AST ALT Alkaline Phosphatase Troponin I 0.03 NT-Pro-B Natriuret Pep Total Protein Albumin Lipase TSH Urine Color Urine Appearance Urine pH Ur Specific Roland Urine Protein Urine Glucose (UA) Urine Ketones Urine Blood Urine Nitrite Urine Bilirubin Urine Urobilinogen Ur Leukocyte Esterase Urine RBC Urine WBC Ur Squamous Epith Cells Urine Bacteria SARS-CoV-2 (PCR) Influenza Type A (PCR) Influenza Type B (PCR) RSV (PCR) Lab Acknowledgement Test Added Test Added POC Creatinine Blood Type Antibody Screen 03/06/25 03/06/25 03/06/25 14:00 12:07 12:05 WBC 8.59 RBC 4.44 Hgb 13.7 Hct 40.9 MCV 92 MCH 31 MCHC 34 RDW Coeff of Aye 12.7 Plt Count 213 Neut % (Auto) 72.9 H Lymph % (Auto) 16.3 L Spencer % (Auto) 5.7 Eos % (Auto) 4.3 Baso % (Auto) 0.6 Neut # (Auto) 6.30 Lymph # (Auto) 1.40 Spencer # (Auto) 0.50 Eos # (Auto) 0.37 Baso # (Auto) 0.05 Abs Immat Gran (auto) 0.02 Imm/Tot Granulo (auto) 0.2 INR 1.00 Sodium 126 L Potassium 4.0 Chloride 91 L Carbon Dioxide 27 Anion Gap 8 BUN 27 Creatinine 1.2 Estimated Creat Clear 42.75 Estimated GFR 59 Glucose 119 H Hemoglobin A1c 6.4 H Lactate 1.1 Calcium 10.3 Total Bilirubin 0.8 AST 30 ALT 21 Alkaline Phosphatase 97 Troponin I 0.02 NT-Pro-B Natriuret Pep 281 Total Protein 7.8 Albumin 4.1 Lipase 163 TSH 3.310 Urine Color Yellow Urine Appearance Clear Urine pH 7.0 Ur Specific Roland 1.015 Urine Protein Trace A Urine Glucose (UA) Negative Urine Ketones Negative Urine Blood Trace-intact A Urine Nitrite Negative Urine Bilirubin Negative Urine Urobilinogen 0.2 Ur Leukocyte Esterase Negative Urine RBC 2-5 A Urine WBC 0-2 Ur Squamous Epith Cells None Urine Bacteria None SARS-CoV-2 (PCR) Influenza Type A (PCR) Influenza Type B (PCR) RSV (PCR) Lab Acknowledgement POC Creatinine Blood Type O Positive Antibody Screen NEGATIVE 03/06/25 03/06/25 12:00 11:49 WBC RBC Hgb Hct MCV MCH MCHC RDW Coeff of Aye Plt Count Neut % (Auto) Lymph % (Auto) Spencer % (Auto) Eos % (Auto) Baso % (Auto) Neut # (Auto) Lymph # (Auto) Spencer # (Auto) Eos # (Auto) Baso # (Auto) Abs Immat Gran (auto) Imm/Tot Granulo (auto) INR Sodium Potassium Chloride Carbon Dioxide Anion Gap BUN Creatinine Estimated Creat Clear Estimated GFR Glucose Hemoglobin A1c Lactate Calcium Total Bilirubin AST ALT Alkaline Phosphatase Troponin I NT-Pro-B Natriuret Pep Total Protein Albumin Lipase TSH Urine Color Urine Appearance Urine pH Ur Specific Roland Urine Protein Urine Glucose (UA) Urine Ketones Urine Blood Urine Nitrite Urine Bilirubin Urine Urobilinogen Ur Leukocyte Esterase Urine RBC Urine WBC Ur Squamous Epith Cells Urine Bacteria SARS-CoV-2 (PCR) Negative SARS-CoV-2 Influenza Type A (PCR) Negative PCR FLU A Influenza Type B (PCR) Negative PCR FLU B RSV (PCR) Negative PCR RSV Lab Acknowledgement POC Creatinine 1.4 H Blood Type Antibody Screen Imaging CT scan - head: Attestation: I have reviewed the pertinent imaging results. Radiologist's impression: No mass effect or midline shift. No hydrocephalus. No suspicious extra-axial collection cortical hemorrhage. Intracranial atherosclerosis. And moderate generalized parenchymal loss. Moderate regions of hypoattenuation in the subcortical and periventricular matter are nonspecific but typical for chronic small vessel ischemic changes. Examination is limited by motion artifact. Leftward deviation of the septum. The calvarium is intact. The scalp and soft tissues are grossly normal. Presumed bilateral lens replacement. The paranasal sinuses are grossly normal. IMPRESSION: 1. No acute intracranial abnormality. 2. No significant changes compared to the prior exam. Chest CTA: Attestation: I have reviewed the pertinent imaging results. Radiologist's impression: PE: Well-timed contrast bolus. There is some motion artifact in the lung bases. No pulmonary emboli seen. Mildly dilated 3.5 cm main pulmonary artery. Moderately dilated right heart chambers. No reflux of contrast below the diaphragm. Airway: Respiratory motion. No central tracheobronchial lesion. Lungs: Respiratory motion mostly in the bases. There is a 6 millimeter subpleural nodule in the right lower lobe on series 606, image 163. There is a 4 millimeter subpleural nodule in the left lower lobe on series 606, image 163. No consolidations. Pleura: No pleural effusion. No pneumothorax. Lymph nodes: No thoracic adenopathy. Mediastinum: No pneumomediastinum. No mass or hematoma. Heart and great vessels: No pericardial effusion. Dilated cardiac chambers. Moderate scattered atherosclerotic plaques. The ascending aorta is dilated up to 4.6 cm. The aortic arch is dilated up to 4.5 cm proximally. The proximal descending thoracic aorta is dilated up to 4 cm. The distal descending thoracic aorta is dilated up to 3.9 cm. No periaortic hematoma. Chest wall: Normal. No masses. Upper abdomen: See same day CT chest abdomen pelvis. Bones: There is some streak artifact from a left shoulder arthroplasty. 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 Old healed anterolateral right 7th and 8th rib fractures. Multilevel disc and facet degeneration. 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 No worrisome focal bone lesion. IMPRESSION: 1. Mild respiratory motion. No pulmonary emboli seen or suspected. 2. Dilated main pulmonary artery may reflect pulmonary hypertension. 3. All 4 cardiac chambers are dilated. No pulmonary edema. 4. Thoracic aortic aneurysm. The ascending aorta measures 4.6 centimeters. The descending aorta measures up to 3.9 centimeters. 5. There are a couple of pulmonary nodules measuring up to 5 millimeters. Per the Fleischner Society criteria consider a follow-up chest CT in 12 months for patients who have a high risk of primary pulmonary malignancy. Cervical spine CT: Attestation: I have reviewed the pertinent imaging results. Radiologist's impression: Straightening and slight reversal of normal cervical lordosis. Ankylosis of the C3-4 vertebral bodies. Advanced degenerative changes at the anterior atlantoaxial articulation. No acute fracture. No aggressive osseous lesions. No prevertebral or paraspinal edema. Grade 1 anterolisthesis at C3-4, C4-5 and C7-T1. The mastoid air cells are clear. C1-2: No spinal canal stenosis. C2-3: [id number] left facet joint arthrosis. No significant spinal canal stenosis. Mild widening of the left facet joint. C3-4: Ankylosis. Advanced left facet arthrosis. Mild to moderate left neural foraminal narrowing. No significant spinal canal stenosis or right neural foraminal narrowing. C4-5: Advanced left and mild right facet joint arthrosis. Mild left neural foraminal narrowing. No right neural foraminal narrowing. No significant spinal canal stenosis. C5-6: Posterior endplate osteophytic ridging. Uncovertebral joint hypertrophy. Bilateral facet arthrosis. Mild neural foramen narrowing bilaterally. No significant spinal canal stenosis. C6-7: Posterior endplate osteophytic spurring and uncovertebral joint hypertrophy. No significant spinal canal stenosis or neural foraminal narrowing. C7-T1: Grade 1 anterolisthesis. Moderate facet joint arthrosis. No significant spinal canal stenosis or neural foraminal narrowing. Impression: 1. No convincing radiographic evidence of acute osseous injury. 2. Scattered degenerative changes of the cervical spine. CT scan - abdomen: Attestation: I have reviewed the pertinent imaging results. Radiologist's impression: Lung bases: Please see same-day diagnostic chest CT. Liver: There is a 1.1 centimeter cyst in hepatic segment III. There are not any worrisome liver lesions. Gallbladder and bile ducts: Normal gallbladder. No bile duct dilation. Pancreas: Normal. Spleen: Normal. Adrenal glands: Normal. Kidneys: Normal overall renal size and position. There are numerous bilateral renal cysts. The largest cyst is in the right upper pole measures 7.9 x 5.5 cm. There are a few smaller left renal cysts that measure up to 1.7 cm. No solid mass. There is hyperdense contrast excreted into the collecting system, presumably from the CT angiogram chest performed earlier today. No large urinary tract calculi are seen. No urinary tract dilation. Urinary bladder: Small amount of excreted hyperdense contrast in the bladder. Pelvis: No cyst or mass. Vessels: Moderate to heavy atherosclerosis. Lower thoracic aorta measures 3.9 centimeters in diameter. Upper abdominal aorta measures 3.1 centimeters in diameter. There is an infrarenal abdominal aortic aneurysm that measures 3.9 x 3.9 cm on series 502, image 85. This extends all the way through the bifurcation. No periaortic hematoma or stranding. There is a focal outpouching along the medial margin that measures about 1.5 centimeters. 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 Measures up to 8 millimeters. Bowel: No dilated or inflamed bowel. Appendix not seen. Moderate diffuse colonic diverticulosis without diverticulitis. Large stool burden. Lymph nodes: No adenopathy. Peritoneum: No ascites. Abdominal wall: Prior umbilical hernia repair. No recurrent hernia. No inguinal hernia. Bones: L3 superior endplate compression fracture with about 10 percent loss of height is age indeterminate. No discrete fracture line seen. Old healed right anterolateral 7th and 8th rib fractures. No focal worrisome bone lesions. IMPRESSION: 1. Age-indeterminate L3 compression fracture. No comparisons available. No findings to indicate this is acute. There is about 10% loss of height. 2. Thoracic and abdominal aortic aneurysm measuring up to 3.9 cm in the lower thorax and infrarenal segments. Discharge Plan Discharge Disposition: Home, Self-Care Date of Admission: 03/06/25 14:56 Attending Provider on Discharge: Madisyn Hoffmann Primary Care Provider: Brian Leger Condition: Stable Anticipated Discharge Date/Time: 03/07/25 10:37 Discharge Medications: Continued clonidine HCl 0.2 mg tablet 0.2 mg PO BID Qty: 180 3RF olmesartan 40 mg tablet 40 mg PO DAILY Qty: 90 3RF omeprazole 20 mg capsule,delayed release(DR/EC) 20 mg PO DAILY Qty: 90 3RF tamsulosin 0.4 mg capsule 0.4 mg PO BID Qty: 180 3RF gabapentin 300 mg capsule 600 mg PO BID Qty: 360 3RF multivitamin [Daily Multi-Vitamin] Tablet 1 tab PO DAILY atorvastatin 20 mg tablet 20 mg PO HS omega-3 fatty acids 1,000 mg capsule 1,000 mg PO DAILY metformin 850 mg tablet 850 mg PO BID amlodipine 5 mg tablet 5 mg PO DAILY nortriptyline 50 mg capsule 50 mg PO HS cholecalciferol (vitamin D3) 50 mcg (2,000 unit) capsule 50 mcg PO DAILY aspirin 81 mg capsule 81 mg PO QDAY Qty: 100 3RF polyethylene glycol 3350 17 gram/dose powder 17 g PO DAILY Qty: 510 5RF amoxicillin 500 mg capsule 2,000 mg PO ONCE Qty: 4 3RF Rx Instructions: Take all 4 capsules, 1 hour prior to dental appointment Discontinued hydrochlorothiazide 50 mg tablet 50 mg PO DAILY Qty: 90 3RF No Action furosemide 40 mg tablet 40 mg PO .Daily as needed PRN (Reason: edema) Qty: 90 3RF Discharge Orders: Discharge Order (Routine); Ordered 03/07/25 Ordered By: Madisyn Hoffmann Patient Education: Hyponatremia (DC), Syncope (DC), Hypotension (DC) Additional Instructions: STOP TAKING YOUR HYDROCHLOROTHIAZIDE AND FUROSEMIDE UNTIL FOLLOW-UP WITH YOUR PCP IN THE CLINIC. YOUR BLOOD PRESSURE AND SODIUM CAN BE ADVERSELY AFFECTED BY THESE MEDICATIONS. RECHECK YOUR SODIUM LEVEL THIS WEEK IN THE CLINIC WITH YOUR PCP. YOU HAVE BEEN REFERRED TO NEPHROLOGY FOR MEDICATION CONSULTATION AND RECOMMENDATIONS IN THE SETTING OF DIABETES AND HIGH BLOOD PRESSURE. IT IS RECOMMENDED THAT YOU HAVE YOUR MEDICATIONS MANAGED FOR YOU - YOUR PCP COULD LOOK INTO CHRONIC CARE MANAGEMENT THROUGH THE CLINIC OR BUBBLE PACKAGING THROUGH YOUR PHARMACY. YOU WILL BE SCHEDULED FOR AN OUTPATIENT OCCUPATIONAL THERAPY APPOINTMENT FOR FURTHER EVALUATION. IT IS ALSO RECOMMENDED YOU UNDERGO FURTHER FORMAL NEUROCOGNITIVE TESTING. IT IS IMPORTANT YOU CONTINUE TO USE YOUR WALKER AT ALL TIMES. ASK FAMILY OR FRIENDS TO REARRANGE FURNITURE SO THAT YOU HAVE A CLEAR PATH THROUGHOUT THE HOME. Activity Level: Use Walker Discharge Diet: Diabetic Follow Up Appointments: Nephrology, [facility] [Provider Group, Nephrology] - 03/28/25 9:30 am Referral Note: New patient appointment with Dr. Adan Valenzuela at [facility] King Tatum MD [Staff Physician, Family Practice] - 03/14/25 9:45 am Referral Note: [facility] for follow up with PCP Forms: [employer] Info Instructions
--- NOTE | 2025-03-07 12:42 | PC.SOCIAL ---
Addendum entered by WENDY Phelps 03/07/25 14:30: Discharge planning: Pt's grandson picked him up from the hospital. Pt's grandson was given the recommendation of family assisting the pt with his medication set-up and administration. Social work to follow-up as needed. Original Note: Discharge planning: die try out worker stamping met with pt and explained that he was being discharged today from the hospital and had told nursing staff that a friend was giving him a ride. Pt was not aware of a friend picking him up today from the hospital. die try out worker stamping attempted to call pt's grandson #[phone], but the number goes straight to voicemail. die try out worker stamping did leave a message asking for a call back. die try out worker stamping will check back in with the pt as he stated that he was going to make some phone calls about a ride after this worker left the room. Social work to follow-up as needed.
[2025-03-07 13:24] VITALS: BP 121/78; PULSE 76; TEMP 37
--- NOTE | 2025-03-07 14:31 | PC.NURSE ---
Discharge Note 245 Patient was very pleasant and cooperative throughout shift. VSS. A7Ox3. SBA. Afebrile. Patient very hard of hearing even with hearing aids on. Education given to patient and grandson on condition, medications and signs and symptoms. Patient discharge at 1412 accompanied by grandson.
--- NOTE | 2025-03-09 09:05 | ED.GENADULT ---
HPI - General Adult General Chief complaint: Syncope/Fainted Stated complaint: Lightheaded Time Seen by Provider: 03/06/25 11:35 History of Present Illness HPI narrative: This is an addendum my ER note dated 03/06/2025. I inadvertently sign my note before I could place full details of the history present illness and physical exam. Please see my prior note for as well. HPI. Patient was apparently up this morning in the in the kitchen and then walking toward the bathroom. Apparently well walk to the bathroom and got weak and then passed out and fell to the floor. history seems a little bit limited. When asked the patient directly he says he does not recall any chest pain or palpitations. No headache. He does not remember any focal numbness or weakness. Sounds like his family called 911. The patient is on several medications for blood pressure but he cannot tell me what they are. It is a little bit vague. It additional history from his family is that he does control his own meds but they are concerned he has been developing dementia for the past year or so. Physical exam Constitutional: Appears well-developed and well-nourished. Alert. Conversant and seems intelligent, but poor historian and limited memory for short-term. HENT: Head: Atraumatic. No depressed skull fracture, Raccoon Eyes, Zayas's sign, or hemotympanum. Face normal. TMs normal Nose: Nose normal. Mouth/Throat: Oral mucosa is clear and moist. no trismus. Pharynx normal. Tonsils symmetric. No tonsillar enlargement, erythema, or exudate. Eyes: Conjunctivae normal. EOM normal. Pupils equal, round, and reactive to light. No scleral icterus. Neck: Normal range of motion. Neck supple. No tracheal deviation present. Cardiovascular: Normal rate, regular rhythm. No gallop. No friction rub. No murmur heard. Symmetric radial artery pulses Pulmonary/Chest: Effort normal. No stridor. No respiratory distress. No wheezes. No rales. No rhonchi . No tenderness. Abdominal: Soft. Bowel sounds normal. No distension. No mass. Left mid upper and lower quadrant tenderness. no pulsatile mass. No rebound. No guarding. Musculoskeletal: RUE: Normal range of motion. No tenderness. No deformity LUE: Normal range of motion. No tenderness. No deformity RLE: Normal range of motion. No edema. No tenderness. No deformity LLE: Normal range of motion. No edema. No tenderness. No deformity Neurological: Alert and oriented to person, But not oriented to date. He knows is at the hospital but not which 1.. Normal strength. CN II-VII intact. No sensory deficit. GCS eye subscore is 4. GCS verbal subscore is 5. GCS motor subscore is 6. Normal coordination . Strength 5/5 x4 extremities. Sensation intact to light touch bilaterally x4 extremity. Skin: Skin is warm and dry. No rash noted. No pallor. Normal capillary refill. Psychiatric: Normal mood. Normal affect. Polite. Related Data Home Medications ?Medication ?Instructions ?Recorded ?Confirmed amlodipine 5 mg tablet 5 mg PO DAILY 03/06/25 03/06/25 atorvastatin 20 mg tablet 20 mg PO HS 03/06/25 03/06/25 cholecalciferol (vitamin D3) 50 50 mcg PO DAILY 03/06/25 03/06/25 mcg (2,000 unit) capsule metformin 850 mg tablet 850 mg PO BID 03/06/25 03/06/25 multivitamin (Daily Multi-Vitamin 1 tab PO DAILY 03/06/25 03/06/25 tablet) nortriptyline 50 mg capsule 50 mg PO HS 03/06/25 03/06/25 omega-3 fatty acids 1,000 mg 1,000 mg PO DAILY 03/06/25 03/06/25 capsule Previous Rx's ?Medication ?Instructions ?Recorded aspirin 81 mg capsule 81 mg PO QDAY #100 caps 05/05/22 polyethylene glycol 3350 17 17 g PO DAILY #510 grams 06/25/22 gram/dose oral powder amoxicillin 500 mg capsule 2,000 mg (4 x 500 mg) PO ONCE #4 07/29/22 caps clonidine HCl 0.2 mg tablet 0.2 mg PO BID #180 tabs 07/03/23 furosemide 40 mg tablet 40 mg PO .Daily as needed PRN 07/03/23 edema #90 tabs gabapentin 300 mg capsule 600 mg (2 x 300 mg) PO BID #360 07/03/23 caps olmesartan 40 mg tablet 40 mg PO DAILY #90 tabs 07/03/23 omeprazole 20 mg capsule,delayed 20 mg PO DAILY #90 caps 07/03/23 release tamsulosin 0.4 mg capsule 0.4 mg PO BID #180 caps 07/03/23 Allergies Allergy/AdvReac Type Severity Reaction Status Date / Time losartan Allergy Mild vomiting Verified 03/06/25 11:33 and headaches PFSH PFSH Medical History (Updated 03/07/25 @ 11:35 by Madisyn Hoffmann PA-C) Medication noncompliance due to cognitive impairment ?R41.9 - Unspecified symptoms and signs involving cognitive functions and awareness (ICD-10) ?Z91.148 - Patient's other noncompliance with medication regimen for other reason (ICD-10) Discharge planning issues ?Z75.8 - Other problems related to medical facilities and other health care (ICD-10) Cognitive impairment ?R41.89 - Other symptoms and signs involving cognitive functions and awareness (ICD-10) Surgical History 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) ?Z98.890 - Other specified postprocedural states (ICD-10) Status post shoulder joint replacement ?Z96.619 - Presence of unspecified artificial shoulder joint (ICD-10) Status post repair of ventral hernia ?Z98.890 - Other specified postprocedural states (ICD-10) ?Z87.19 - Personal history of other diseases of the digestive system (ICD-10) Status post cataract extraction (09/17/10) ?Z98.49 - Cataract extraction status, unspecified eye (ICD-10) Status post arthroscopy of left knee (11/13/08) ?Z98.890 - Other specified postprocedural states (ICD-10) Social History (Updated 03/06/25 @ 22:59 by Florentin Barcenas MD) Narrative: Former smoker. According to his grandson the primary person to contact is the patient's daughter, Bri, who lives nearby in [place] phone number [phone]. What is your current living situation?: I presently have a place to live Problems where you live: no known problems Problems where you live details: Doesnt trust In the past 12 months, utilities in danger of being shut off: no In past 12 months, lack of transportation kept you from medical appts, meetings, work, or getting things needed for daily living: no In the past 12 mos, have been you worried that your food would run out before you had money to buy more?: never true In the past 12 mos, the food you bought just didn't last and you didn't have money to buy more?: never true Smoking Status: Former smoker Do you use any of these nicotine containing products: None Second hand tobacco smoke exposure: No How often do you have a drink containing alcohol: never How often do you have six or more drinks on one occasion: Never AUDIT-C Alcohol total score: 0 Non-prescribed substance use: denies use Caffeine: Yes How often does anyone, including family, friends and others, physically hurt you: never How often does anyone, including family, friends and others, insult or talk down to you: sometimes How often does anyone, including family, friends and others, threaten you with harm: sometimes How often does anyone, including family, friends and others, scream or curse at you: sometimes service: No Health Related Social Needs: Other personal risk factors, not elsewhere classified (Z91.89) Course Vital Signs Vital signs: Initial Vital Signs Temperature 96.8 F L 03/06/25 11:28 Temperature Source Temporal Artery Scan 03/06/25 11:28 Pulse Rate 56 L 03/06/25 11:28 Pulse Rhythm Regular 03/06/25 11:28 Respiratory Rate 18 03/06/25 11:28 Blood Pressure 110/70 03/06/25 11:28 Blood Pressure Mean 83 03/06/25 11:28 Blood Pressure Position Supine 03/06/25 11:28 Pulse Oximetry 95 03/06/25 11:28 Oxygen Delivery Method Room Air 03/06/25 11:28 Vital Signs Temperature 96.8 F L 03/06/25 11:28 Pulse Rate 56 L 03/06/25 11:28 Respiratory Rate 18 03/06/25 11:28 Blood Pressure 110/70 03/06/25 11:28 Pulse Oximetry 95 03/06/25 11:28 Oxygen Delivery Method Room Air 03/06/25 11:28 Temperature 98.6 F 03/07/25 13:24 Pulse Rate 76 03/07/25 13:24 Respiratory Rate 16 03/07/25 03:00 Blood Pressure 121/78 03/07/25 13:24 Pulse Oximetry 97 03/07/25 03:00 Oxygen Delivery Method Room Air 03/07/25 03:00 Medications Administered Medications: Discontinued Medications Generic Name Dose Route Start Last Admin Trade Name Freq PRN Reason Stop Dose Admin Acetaminophen 650 mg 03/06/25 18:35 03/07/25 09:10 Acetaminophen 325 Mg Tablet PO 650 mg Q6H PRN Administration Atorvastatin Calcium 20 mg 03/06/25 21:00 03/06/25 20:41 Atorvastatin Calcium 10 Mg Tablet PO 20 mg HS CHRISTINE Administration Clonidine HCl 0.1 mg 03/06/25 21:00 03/07/25 09:10 Clonidine Hcl 0.1 Mg Tablet PO 0.1 mg BID CHRISTINE Administration Gabapentin 300 mg 03/06/25 21:00 03/07/25 09:10 Gabapentin 300 Mg Capsule PO 300 mg BID CHRISTINE Administration Lactated Ringer's 1,000 mls @ 1,000 mls/hr 03/06/25 11:51 03/06/25 13:32 Lactated Ringers 1000 Ml IV 03/06/25 12:50 Infused .Q1H ONE Infusion Lactated Ringer's 500 mls @ 500 mls/hr 03/06/25 11:51 03/06/25 16:05 Lactated Ringers 500 Ml IV 03/06/25 12:50 Infused .Q1H ONE Infusion Vancomycin/PEG/NADA/Lysine/Water 1.5 gm in 300 mls @ 200 mls/hr 03/06/25 11:52 03/06/25 20:05 Vancomycin 1.5 Gm/300 Ml IVPB 03/06/25 13:21 Infused ONCE ONE Infusion Protocol Piperacillin Sod/Tazobactam 100 mls @ 200 mls/hr 03/06/25 12:30 03/06/25 13:25 Sod 3.375 gm/ Sodium Chloride IVPB 03/06/25 12:59 Infused ONCE ONE Infusion Lidocaine/Aluminum/Magnesium/Simeth 15 ml 03/06/25 20:50 03/07/25 00:21 Mag Hydrox/Aluminum Hyd/Simeth 30 Ml Oral.Susp PO 15 ml QID PRN Administration Metformin HCl 850 mg 03/06/25 18:00 03/06/25 20:05 Metformin 850 Mg Tablet PO Not Given BIDWM CHRISTINE Metformin HCl 500 mg 03/06/25 21:00 03/07/25 09:10 Metformin Er 500 Mg PO 500 mg BID CHRISTINE Administration Omeprazole 20 mg 03/06/25 21:00 03/07/25 09:10 Omeprazole [address] PO 20 mg BID CHRISTINE Administration Sodium Chloride 5 ml 03/06/25 21:00 03/07/25 09:11 Sodium Chloride 0.9 % (Flush) 10 Ml Syringe IVF 5 ml BID CHRISTINE Administration Tamsulosin HCl 0.4 mg 03/06/25 21:00 03/07/25 09:11 Tamsulosin Hcl 0.4 Mg Capsule PO 0.4 mg BID CHRISTINE Administration Medical Decision Making Lab Data Labs: Lab Results 03/06/25 03/06/25 03/06/25 Range/Units 11:49 12:00 12:05 WBC (4.50-11.00) K/uL RBC (4.30-5.90) m/uL Hgb (13.5-17.5) gm/dL Hct (37.0-53.0) % MCV (80-100) fL MCH (26-34) pg MCHC (32-36) gm/dL RDW Coeff of Aye (11.5-15.5) % Plt Count (140-440) K/uL Neut % (Auto) (42.0-72.0) % Lymph % (Auto) (20-44) % [place] % (Auto) (0.0-11.0) % Eos % (Auto) (0.0-7.0) % Baso % (Auto) (0.0-3.0) % Neut # (Auto) (1.7-7.0) K/uL Lymph # (Auto) (0.90-2.90) K/uL [place] # (Auto) (0.00-0.90) K/UL Eos # (Auto) (0.00-0.50) K/uL Baso # (Auto) (0.00-0.30) K/uL Abs Immat Gran (auto) (0.00-0.30) K/uL Imm/Tot Granulo (auto) % INR (0.91-1.10) Sodium (135-149) mmol/L Potassium (3.6-5.1) mmol/L Chloride (96-114) mmol/L Carbon Dioxide (20-32) mmol/L Anion Gap (7-15) mEq/L BUN (7-30) mg/dL Creatinine (0.5-1.5) mg/dL Estimated Creat Clear Estimated GFR ml/min Glucose (60-115) mg/dL Hemoglobin A1c 6.4 H (0-5.6) % Lactate 1.1 (0.5-1.9) mmol/L Calcium (8.4-10.6) mg/dL Total Bilirubin (0.1-1.5) mg/dL AST (12-35) U/L ALT (4-50) U/L Alkaline Phosphatase (40-150) U/L Troponin I (0.01-0.04) ng/mL NT-Pro-B Natriuret Pep (See Note) pg/mL Total Protein (6.0-8.3) g/dL Albumin (3.3-5.0) g/dL Lipase (23-300) U/L TSH 3.310 (0.270-4.20) uIU/mL Urine Color (Yellow) Urine Appearance (Clear) Urine pH (5.0-8.5) Ur Specific [place] (1.000-1.030) Urine Protein (Negative) Urine Glucose (UA) (Negative) Urine Ketones (Negative) Urine Blood (Negative) Urine Nitrite (Negative) Urine Bilirubin (Negative) Urine Urobilinogen (0.2-1.0) Ur Leukocyte Esterase (Negative) Urine RBC (0-2) Urine WBC (0-5) Ur Squamous Epith Cells (None-Few) Urine Bacteria (None) SARS-CoV-2 (PCR) Negative SARS-CoV-2 (Negative) Influenza Type A (PCR) Negative PCR FLU A (Negative) Influenza Type B (PCR) Negative PCR FLU B (Negative) RSV (PCR) Negative PCR RSV (Negative) POC Creatinine 1.4 H (0.6-1.3) mg/dl Blood Type O Positive Antibody Screen NEGATIVE 03/06/25 03/06/25 Range/Units 12:07 14:00 WBC 8.59 (4.50-11.00) K/uL RBC 4.44 (4.30-5.90) m/uL Hgb 13.7 (13.5-17.5) gm/dL Hct 40.9 (37.0-53.0) % MCV 92 (80-100) fL MCH 31 (26-34) pg MCHC 34 (32-36) gm/dL RDW Coeff of Aye 12.7 (11.5-15.5) % Plt Count 213 (140-440) K/uL Neut % (Auto) 72.9 H (42.0-72.0) % Lymph % (Auto) 16.3 L (20-44) % [place] % (Auto) 5.7 (0.0-11.0) % Eos % (Auto) 4.3 (0.0-7.0) % Baso % (Auto) 0.6 (0.0-3.0) % Neut # (Auto) 6.30 (1.7-7.0) K/uL Lymph # (Auto) 1.40 (0.90-2.90) K/uL [place] # (Auto) 0.50 (0.00-0.90) K/UL Eos # (Auto) 0.37 (0.00-0.50) K/uL Baso # (Auto) 0.05 (0.00-0.30) K/uL Abs Immat Gran (auto) 0.02 (0.00-0.30) K/uL Imm/Tot Granulo (auto) 0.2 % INR 1.00 (0.91-1.10) Sodium 126 L (135-149) mmol/L Potassium 4.0 (3.6-5.1) mmol/L Chloride 91 L (96-114) mmol/L Carbon Dioxide 27 (20-32) mmol/L Anion Gap 8 (7-15) mEq/L BUN 27 (7-30) mg/dL Creatinine 1.2 (0.5-1.5) mg/dL Estimated Creat Clear 42.75 Estimated GFR 59 ml/min Glucose 119 H (60-115) mg/dL Hemoglobin A1c (0-5.6) % Lactate (0.5-1.9) mmol/L Calcium 10.3 (8.4-10.6) mg/dL Total Bilirubin 0.8 (0.1-1.5) mg/dL AST 30 (12-35) U/L ALT 21 (4-50) U/L Alkaline Phosphatase 97 (40-150) U/L Troponin I 0.02 (0.01-0.04) ng/mL NT-Pro-B Natriuret Pep 281 (See Note) pg/mL Total Protein 7.8 (6.0-8.3) g/dL Albumin 4.1 (3.3-5.0) g/dL Lipase 163 (23-300) U/L TSH (0.270-4.20) uIU/mL Urine Color Yellow (Yellow) Urine Appearance Clear (Clear) Urine pH 7.0 (5.0-8.5) Ur Specific [place] 1.015 (1.000-1.030) Urine Protein Trace A (Negative) Urine Glucose (UA) Negative (Negative) Urine Ketones Negative (Negative) Urine Blood Trace-intact A (Negative) Urine Nitrite Negative (Negative) Urine Bilirubin Negative (Negative) Urine Urobilinogen 0.2 (0.2-1.0) Ur Leukocyte Esterase Negative (Negative) Urine RBC 2-5 A (0-2) Urine WBC 0-2 (0-5) Ur Squamous Epith Cells None (None-Few) Urine Bacteria None (None) SARS-CoV-2 (PCR) (Negative) Influenza Type A (PCR) (Negative) Influenza Type B (PCR) (Negative) RSV (PCR) (Negative) POC Creatinine (0.6-1.3) mg/dl Blood Type Antibody Screen Discharge Plan Discharge Clinical Impression: Orthostatic hypotension, Confusion, Acute hyponatremia Patient Disposition: Admitted As Observation Condition: Stable Activity Level: Use Walker Discharge Diet: Diabetic
== END 2025-03-07 14:12 | disposition home or self-care (01) ==
LOC: ED 14:26 → MEDSURG 14:57
PROVIDERS: Family Medicine; Admitting Provider Orthopaedic Surgery; Emergency Provider Emergency Medicine; PCP Family Medicine; Visit Provider Orthopaedic Surgery
DX: G31.84 Mild cognitive impairment of uncertain or unknown etiology (principal); S69.92XA Unspecified injury of left wrist, hand and finger(s), initial encounter; I95.1 Orthostatic hypotension; S20.219A Contusion of unspecified front wall of thorax, initial encounter; E87.1 Hypo-osmolality and hyponatremia; I71.20 Thoracic aortic aneurysm, without rupture, unspecified; I71.40 Abdominal aortic aneurysm, without rupture, unspecified; S32.030A Wedge compression fracture of third lumbar vertebra, initial encounter for closed fracture; R91.1 Solitary pulmonary nodule; Z91.130 Patient's unintentional underdosing of medication regimen due to age-related debility; W19.XXXA Unspecified fall, initial encounter
CPT/HCPCS: 36415; 51798; 70450; 71275; 72125; 73140; 74177; 80048; 80053; 81001; 82565; 82962; 83036; 83605; 83690; 83880; 84443; 84484; 85025; 85610; 86850; 86900; 86901; 87040; 87631; 93005; 96365; 96366; 97116; 97161; 97165; 97535; 99281; 99284; 99285; A9270; G0378; J2543; J3375; J7120; Q9967